=== PATIENT | female | born 1990 | race African-American/Black ===

== ENCOUNTER 2020-07-07 17:36 | Emergency (ER) | payer OTHER ==
--- OUTSIDE RECORDS SUMMARY | 2020-07-07 17:39 | XMS REPORT | Continuity of Care Document ---
:1990 Author Organization [facility] t Address [address] [place] [address] Care Team Providers Name Role Phone Giacomo LANGLEY Attending Clinician Unavailable Mandeep Grant MD Attending Clinician Giacomo LANGLEY Admitting Clinician Unavailable Mandeep Grant MD Admitting Clinician Problems This patient has no known problems. Allergies, Adverse Reactions, Alerts This patient has no known allergies or adverse reactions. Medications This patient has no known medications. Procedures This patient has no known procedures. Encounters Start End Encounter Admission Attending Care Care Encounter Source Date/Time Date/Time Type Type Clinicians Facility Department ID 2018-09-13 2018-09-13 [facility] RudyElsyen [facility] [id number] 22:07:00 23:32:00 Encounter Mandeep Van [id number] [place] [id number] [place] [id number] Results Test Description Test Time Test Comments Results Result [facility] e Comments [id number] SURGICAL 2018-09-30 PATHOLOGY, LEVEL V 15:05:00 -------- [facility] [address] [place] [address] Laboratory Printed: 09/30/18 Leanna MELVIN DAEMPathology Page: 1 Patient: RADHA DOBBS Birthdate: 1990 Age/Sex: 28/F Spec#: [id number]: FAROOQ LANGLEY DO Specimen Date: 09/25/18 Received Date: 09/29/18 Specimen: PLACENTA, THIRD TRIMESTER CLINICAL DIAGNOSIS oligohydramnios, previous PATHOLOGIC DIAGNOSIS Placenta, delivery by section, clinical trimester third. Gross/microscopically determined trimester: Third. Gross features of placental disc: - Weight -- 450 gm. - Thickness -- 2.5 cm. - Shape/morphology -- Discoid. Gross features of umbilical cord: - Insertion -- Eccentrically, 4.5 cm from the nearest margin. - Number of vessels -- Three. - Length -- 41.0 cm. - Diameter -- 1.2 cm. Insertion of membrane: Edge of the placenta. Microscopic findings: - Placental villi -- Infarct. - membranes -- Within normal limits. - Decidua -- Within normal limits. - Maternal vessels -- Within normal limits. - Umbilical cord -- Within normal limits. Pathologist:Avila Carpenter MD Entered by:09/30/18 - 1443 LAB.YGP Patient: RADHA DOBBS Re09/24/18Loc: SISI MR#: [id number] CONTINUED ON NEXT PAGE Dis: 09/28/18Sta: DIS IN -------- [facility] [address] [place] [address] Laboratory Printed: 09/30/[address] [place] [address] Page: 2 -------- Patient: RADHA DOBBS [id number] (Continued) PROCEDURES: 94275 GROSS DESCRIPTION A. PLACENTA, THIRD TRIMESTER PLACENTA AND CORD The specimen is received in 10% formalin, and is labeled with the patient's name and"placenta and cord". The specimen consists of a single discoid shaped placenta with atrimmed weight of 450 gm. The placenta measures 15.0 x 15.0 x 2.5 cm in greatestdimensions. The cord is inserted eccentrically 4.5 cm from the nearest margin. The fetalumbilical cord measures 41.0 cm in length with a 1.2 cm diameter. Cut sectioning of theumbilical cord reveals three vessels and appears grossly unremarkable. The membraneis inserted at the edge of the placenta. It is thin and semi-translucent with no grossabnormalities. The aspects of the placenta have a normal-appearing vascular pattern.It is powers-purple in color with multiple scattered powers-white infarct-like discolored areasranging from 1.8 to 2.0 cm in greatest dimensions and comprise less than 5% of the fetalsurface. Also present is a 0.9 x 0.7 x 0.3 cm cystic nodule toward one end. Arepresentative section is submitted. The maternal aspects have a normal-appearing red-maroon cotyledon. Upon cut sectioning it reveals a red-maroon spongy cut surface with nolesions or masses grossly identified. Random claim representative sections are submitted in threecassettes, A1-3. Section code:A1 - cord and membraneA2 - aspectsA3 - maternal aspects Dictated by: Raquel Trejo Entered by: 09/29/18 - 1512 LAB.YGP MICROSCOPIC DESCRIPTION A microscopic examination was performed to arrive at the diagnostic conclusion reported. Signed (Electronicall y Signed) Avila Carpenter MD 09/30/18 -------- Patient: RADHA DOBBS Re09/24/18Loc: SISI MR#: [id number] END OF REPORT Dis: 09/28/18Sta: DIS IN Hematology 2018-09-26 05:28:00 Test Item Value Reference Range Interpretation Comme nts Hematology (test code = WBCT) 16.3 thou/uL 4.8-10.8 H Hematology (test code = RBCT) 3.62 mill/uL 4.20-5.40 L Hematology (test code = HGBT) 8.8 g/dL 12.0-16.0 L Hematology (test code = HCTT) 26.7 % 36.0-47.0 L Hematology (test code = MCV) 73.8 fL 78.0-98.0 L Hematology (test code = MCH) 24.4 pg 27.0-31.0 L Hematology (test code = MCHC) 33.0 g/dL 32.0-36.0 N Hematology (test code = RDW) 14.8 % 11.5-14.5 H Hematology (test code = PLTT) 305 thou/uL 130-400 N Hematology (test code = MPV) 8.7 fL 7.4-10.4 N Hematology (test code = %NEUT) 84.4 % 42.0-75.0 H Hematology (test code = %LYMPH) 10.7 % 21.0-51.0 L Hematology (test code = %MONO) 4.7 % 0.0-10.0 N Hematology (test code = %EOS) 0.1 % 0.0-10.0 N Hematology (test code = %BASO) 0.1 % 0.0-1.0 N Hematology (test code = NEUT#) 13.7 thou/uL 1.40-6.50 H Hematology (test code = LYMPH#) 1.7 thou/uL 1.20-3.40 N Hematology (test code = MONO#) 0.8 thou/uL 0.11-0.59 H Hematology (test code = EOS#) 0.0 thou/uL 0.0-0.7 N Hematology (test code = BASO#) 0.0 thou/uL 0.0-0.2 N Chemistry - [id number] 20:42:00 Test Item Value Reference Range Interpretation Comments Chemistry - Specials (test Non-Reactive S/CO NonReactive code = THBSAG) Chemistry - [id number] 20:42:00 Test Item Value Reference Range Interpretation Comments Chemistry - Specials (test code Non-Reactive NonReactive = HIVT) Retype Verify-Blood Type [id number] 20:24:00 Test Item Value Reference Range Interpretation Comments Blood Type Rh (test code = BT) A POSITIVE [id number] 19:40:00 Test Item Value Reference Range Interpretation Comments Immunology (test code = SYPHABT) Nonreactive Nonreactive [id number] 19:08:00 Test Item Value Reference Range Interpretation Comments Hematology (test code = WBCT) 9.7 thou/uL 4.8-10.8 N Hematology (test code = RBCT) 3.77 mill/uL 4.20-5.40 L Hematology (test code = HGBT) 9.4 g/dL 12.0-16.0 L Hematology (test code = HCTT) 27.9 % 36.0-47.0 L Hematology (test code = MCV) 74.0 fL 78.0-98.0 L Hematology (test code = MCH) 24.8 pg 27.0-31.0 L Hematology (test code = MCHC) 33.5 g/dL 32.0-36.0 N Hematology (test code = RDW) 15.0 % 11.5-14.5 H Hematology (test code = PLTT) 316 thou/uL 130-400 N Hematology (test code = MPV) 9.3 fL 7.4-10.4 N US Biophysical ProfileSt [facility] Pt Name: RADHA DOBBS [employer] Phys: [place] [address] : 1990 Age: 28 SEX:F [phone] Exam Date: 09/25/18 Status: ADM IN Acct: [id number] Loc: Giacomo Deras Pt Unit #: [id number] Report #: [id number] CC: FAROOQ LANGLEY DO ULTRASOUND REPORT Order # Category/Exam [id number] ULT/US Biophysical Profile ([id number]): . Results Exam: NONSTRESS BIOPHYSICAL PROFILE: HISTORY: 35-weeks patient. Oligohydramnios. Comparison: None TECHNIQUE: Nonstress biophysical profile was performed. FINDINGS: Single intrauterine gestation with vertex presentation. Anterior placenta. Cervical length is 3.6 cm heart tones with a rate of 123 bpm Amniotic fluid index is 3.5 cm Nonstress biophysical profile: tone: 2 breathin movements: 2 Amniotic fluid: 0 Total score 4 out of 8: IMPRESSION: 1. Single intrauterine gestation with heart tones. 2. Nonstress biophysical profile score is 4 out of 8. Results were given to Giacomo Martínez by the regulator pin inserter on 09/25/2018 at the time of the examination. Code CR Transcribed Date/Time: 09/25/2018 10:10 AM Reported By: Ok Gamboa ElectronicallySigned: 09/25/2018 10:35 AM Reported By: Ok Gamboa MD Electronically Signed Date/Time: 09/25/18 1035 Technologist: DIOGENES Dictated Date/Time: 09/25/18 0933 Transcribed Date/Time:
--- NOTE | 2020-07-07 18:57 | RAD REPORT ---
EXAM DESCRIPTION: RAD - Chest Single View - 07/07/2020 6:48 pm CLINICAL HISTORY: fever, cough, chills, body or right back pain COMPARISON: Portable February 2013 TECHNIQUE: AP portable chest image was obtained 07/07/2020 6:48 pm . FINDINGS: Lungs are clear. Heart and vasculature are normal. No measurable pleural effusion and no p neumothorax. No acute bony abnormality seen. No acute aortic findings suspected. IMPRESSION: No acute cardiopulmonary process.
[2020-07-07 19:15] LABS: Urine Blood 1+ (Negative); Urine Glucose Negative (Negative); Urine Protein 1+ (Negative)
[2020-07-07 19:45] LABS: Urine Bacteria 20-50 /HPF (<20); Urine Mucus 1+ /HPF (NONE SEEN)
[2020-07-07 20:01] LABS: SARS-COV-2 RT PCR NEGATIVE (NEGATIVE)
[2020-07-07] MEDS ORDERED: ACETAMINOPHEN 500 MG TAB ONE ×2 (20:25→20:28)
[2020-07-07] MEDS ORDERED: CEFTRIAXONE 1000 MG/VIAL ONE (20:25)
[2020-07-07] MEDS ORDERED: WATER FOR INJ,STERILE 10 ML ONE (20:25)
--- NOTE | 2020-07-07 20:27 | ER ---
Nurse's Notes [facility] Name: Jazlyn Frazier Age: 30 yrs Sex: Female : 1990 Arrival Date: 07/07/2020 Time: 17:41 Bed 5 Private MD: Diagnosis: Urinary tract infection, site not specified;Cough;Fever, unspecified Presentation: 07/07 18:18 Chief complaint: Patient states: Cough x 5 - 6 days, chills, bodyaches, R lower back ca1 pain today. Coronavirus screen: Client denies travel out of the [place] in the last 14 days. chills, cough unrelated to allergies, Client presents with at least one sign or symptom that may indicate coronavirus-19. Standard/surgical mask placed on the client. Provider contacted for isolation considerations. Ebola Screen: Patient negative for fever greater than or equal to 101.5 degrees Fahrenheit, and additional compatible Ebola Virus Disease symptoms Patient denies exposure to infectious person. Patient denies travel to an Ebola-affected area in the 21 days before illness onset. No symptoms or risks identified at this time. Initial Sepsis Screen: Does the patient meet any 2 criteria? No. Patient's initial sepsis screen is negative. Does the patient have a suspected source of infection? No. Patient's initial sepsis screen is negative. Risk Assessment: Do you want to hurt yourself or someone else? Patient reports no desire to harm self or others. Onset of symptoms was July 07, 2020. 18:18 Method Of Arrival: Ambulatory ca1 18:18 Acuity: ALEKSANDAR 4 ca1 SPEECH THERAPIST TECHNICIAN: 18:20 [facility] 06/29/2020 ca1 Historical: - Allergies: 18:20 No Known Allergies; ca1 - Home Meds: 18:20 None [Active]; ca1 - PMHx: 18:20 None; ca1 - PSHx: 18:20 ; ca1 - Immunization history:: Client reports having NOT received the Covid vaccine. Flu vaccine is not up to date. - Social history:: Smoking status: Patient denies any tobacco usage or history of. Screenin:00 Abuse screen: Denies threats or abuse. Nutritional screening: No deficits noted. jb4 Tuberculosis screening: No symptoms or risk factors identified. Fall Risk None identified. Assessment: 19:00 General: Appears in no apparent distress. uncomfortable, Behavior is calm, cooperative, jb4 appropriate for age. Pain: Complains of pain in back Pain does not radiate. Pain currently is 10 out of 10 on a pain scale. Neuro: Level of Consciousness is awake, alert, obeys commands, Oriented to person, place, time, situation. Cardiovascular: Patient's skin is warm and dry. Respiratory: Airway is patent Respiratory effort is even, unlabored, Respiratory pattern is regular, symmetrical. GI: No signs and/or symptoms were reported involving the gastrointestinal system. : No signs and/or symptoms were reported regarding the genitourinary system. EENT: No signs and/or symptoms were reported regarding the EENT system. Derm: Skin is intact, Skin is pink, warm \T\ dry. Musculoskeletal: Circulation, motion, and sensation intact. Range of motion: intact in all extremities. 20:01 Reassessment: Patient appears in no apparent distress at this time. Patient and/or jb4 family updated on plan of care and expected duration. Pain level reassessed. Patient is alert, oriented x 3, equal unlabored respirations, skin warm/dry/pink. Vital Signs: 18:18 BP 131 / 84; Pulse 91; Resp 16 S; Temp 97.8(TE); Pulse Ox 99% on R/A; Weight 86.18 kg ca1 (R); Height 5 ft. 0 in. (152.40 cm) (R); Pain 10/10; 20:00 BP 119 / 77; Pulse 95; Resp 18; Temp 101.0(TE); Pulse Ox 100% on R/A; jb4 20:35 Temp 98.2(TE); jb4 18:18 Body Mass Index 37.11 (86.18 kg, 152.40 cm) ca1 ED Course: 17:41 Patient arrived in ED. mr 18:09 Delvin Landrum PA is PHCP. jmm 18:09 Derw Garza MD is Attending Physician. jmm 18:19 Triage completed. ca1 18:20 Arm band placed on right wrist. ca1 18:44 Hal Salazar, JENNIFER is Primary Nurse. em 18:48 Chest Single View XRAY In Process Unspecified. EDMS 19:00 Patient has correct armband on for positive identification. Bed in low position. Call jb4 light in reach. Side rails up X 1. Pulse ox on. NIBP on. 20:36 No provider procedures requiring assistance completed. Patient did not have IV access jb4 during this emergency room visit. Administered Medications: 20:08 Drug: Tylenol 1000 mg Route: PO; jb4 20:37 Follow up: Response: No adverse reaction; Marked relief of symptoms jb4 20:14 Drug: Rocephin (cefTRIAXone) 1 grams Route: IM; Site: left gluteus; jb4 20:37 Follow up: Response: No adverse reaction jb4 Outcome: 20:26 Discharge ordered by . soco 20:36 Discharged to home ambulatory. jb4 20:36 Condition: stable 20:36 Discharge instructions given to patient, Instructed on discharge instructions, follow up and referral plans. medication usage, Demonstrated understanding of instructions, follow-up care, medications, Prescriptions given X 2. 20:37 Patient left the ED. jb4 Addendum: 07/11/2020 09:20 Addendum: Culture Results: Positive urine culture. No further action required. Bacteria s v sensitive to prescribed antibiotic. Signatures: Dispatcher [employer] Elise Ren, RN RN Delvin Gonzalez PA PA jmm Rivera, Mary mr Munoz, Edgar, RN RN em Bryson, James, RN RN jbAmara Foote RN RN ca1
--- NOTE | 2020-07-07 20:27 | EDPHYS ---
Physician Documentation [facility] Name: Jazlyn Frazier Age: 30 yrs Sex: Female : 1990 Arrival Date: 07/07/2020 Time: 17:41 Bed 5 Private MD: HARRISON Physician Drew Garza HPI: 07/07 19:58 This 30 yrs old Black Female presents to ER via Ambulatory with complaints of Back jmm Pain, Cough. 19:58 The patient presents with pain that is acute. The symptoms are located in the low back. jmm Onset: The symptoms/episode began/occurred gradually, 5 day(s) ago. The pain does not radiate. Associated signs and symptoms: Pertinent positives: dysuria. Modifying factors: The patient symptoms are alleviated by nothing, the patient symptoms are aggravated by nothing. The patient has not experienced similar symptoms in the past. Patient also complains of cough, body aches. . GRILL COOK: 18:20 LMP 06/29/2020 ca1 Historical: - Allergies: 18:20 No Known Allergies; ca1 - Home Meds: 18:20 None [Active]; ca1 - PMHx: 18:20 None; ca1 - PSHx: 18:20 ; ca1 - Immunization history:: Client reports having NOT received the Covid vaccine. Flu vaccine is not up to date. - Social history:: Smoking status: Patient denies any tobacco usage or history of. ROS: 19:58 Constitutional: Positive for body aches, chills. jmm 19:58 Respiratory: Positive for cough. 19:58 Back: Positive for pain with movement. 19:58 All other systems are negative. Exam: 19:58 Constitutional: This is a well developed, well nourished patient who is awake, alert, jmm and in no acute distress. Head/Face: atraumatic. Eyes: EOMI, no conjunctival erythema appreciated ENT: Moist Mucus Membranes Neck: Trachea midline, Supple Chest/axilla: Normal chest wall appearance and motion. Cardiovascular: Regular rate and rhythm. No edema appreciated Respiratory: Normal respirations, no respiratory distress appreciated Abdomen/GI: Non distended, soft Back: Normal ROM Skin: General appearance color normal MS/ Extremity: Moves all extremities, no obvious deformities appreciated, no edema noted to the lower extremities Neuro: Awake and alert, normal gait Psych: Behavior is normal, Mood is normal, Patient is cooperative and pleasant Vital Signs: 18:18 BP 131 / 84; Pulse 91; Resp 16 S; Temp 97.8(TE); Pulse Ox 99% on R/A; Weight 86.18 kg ca1 (R); Height 5 ft. 0 in. (152.40 cm) (R); Pain 10/10; 20:00 BP 119 / 77; Pulse 95; Resp 18; Temp 101.0(TE); Pulse Ox 100% on R/A; jb4 20:35 Temp 98.2(TE); jb4 18:18 Body Mass Index 37.11 (86.18 kg, 152.40 cm) ca1 MDM: 18:26 Patient medically screened. [facility] 20:19 Data reviewed: vital signs, nurses notes. Counseling: I had a detailed discussion with soco the patient and/or guardian regarding: the historical points, exam findings, and any diagnostic results supporting the discharge/admit diagnosis, lab results, radiology results, the need for outpatient follow up, to return to the emergency department if symptoms worsen or persist or if there are any questions or concerns that arise at home. ED course: Differential would include acute bronchitis, viral syndrome, uti, pyelonephritis. Patient is alert and non toxic in appearance. Will treat urine with abx. Patient given strict return precautions. patient understood and agrees with the plan of care. . 07/07 18:34 Order name: Flu [facility] 07/07 18:34 Order name: COVID-19 : Document "Date of Symptom Onset" if Symptomatic. [facility] 07/07 19:15 Order name: Urine Dipstick-Ancillary; Complete Time: 19:32 [facility] 07/07 19:16 Order name: Urine Microscopic Only; Complete Time: 19:58 [facility] 07/07 18:34 Order name: Chest Single View XRAY; Complete Time: 19:04 [facility] 07/07 19:04 Order name: Urine Dipstick-Ancillary (obtain specimen); Complete Time: 19:16 [facility] 07/07 19:17 Order name: Urine --Ancillary (enter results); Complete Time: 19:36 [facility] 07/07 19:46 Order name: Urine Culture [facility] 07/07 20:01 Order name: COVID-19/FLU A+B; Complete Time: 20:03 EDNC Administered Medications: 20:08 Drug: Tylenol 1000 mg Route: PO; jb4 20:37 Follow up: Response: No adverse reaction; Marked relief of symptoms jb4 20:14 Drug: Rocephin (cefTRIAXone) 1 grams Route: IM; Site: left gluteus; jb4 20:37 Follow up: Response: No adverse reaction jb4 Disposition: 07/08 06:43 Co-signature as Attending Physician, Drew Garza MD I agree with the assessment and kdr plan of care. Disposition: 07/07/20 20:26 Discharged to Home. Impression: Urinary tract infection, site not specified, Cough, Fever, unspecified. - Condition is Stable. - Discharge Instructions: Urinary Tract Infection, Adult. - Prescriptions for cefpodoxime 200 mg Oral Tablet - take 1 tablet by ORAL route every 12 hours for 10 days with food; 20 tablet. Zofran ODT 4 mg Oral tablet,disintegrating - place 1 tablet by TRANSLINGUAL route every 4-6 hours; 20 tablet. - Medication Reconciliation Form, Thank You Letter, Antibiotic Education, Prescription Opioid Use form. - Follow up: Private Physician; When: 2 - 3 days; Reason: Recheck today's complaints, Continuance of care, Re-evaluation by your physician. Signatures: Dispatcher [employer] [facility] Drew Garza MD MD kdr Mickail, Joel, PA PA [facility] Babak Haile, RN RN jb4 Amara Murray RN RN ca1 Corrections: (The following items were deleted from the chart) 07/07 19:17 18:34 Influenza Screen (A ordered. [facility] 19:17 18:34 CORONAVIRUS ordered. [facility] 20:37 20:26 07/07/2020 20:26 Discharged to Home. Impression: Urinary tract infection, site jb4 not specified; Cough; Fever, unspecified. Condition is Stable. Forms are Medication Reconciliation Form, Thank You Letter, Antibiotic Education, Prescription Opioid Use. Follow up: Private Physician; When: 2 - 3 days; Reason: Recheck today's complaints, Continuance of care, Re-evaluation by your physician. [facility]
[2020-07-07 20:45] VITALS: BP 119/77; O2SAT 100
[2020-07-07 20:46] VITALS: TEMP 98.2
== END 2020-07-07 20:37 | disposition home or self-care (01) ==
LOC: ER 17:36
DX: N39.0 Urinary tract infection, site not specified (principal); R05 Cough; Z20.822 Contact with and (suspected) exposure to COVID-19
CPT/HCPCS: 87088; 87086; 81025; 87077; 87186; 0240U; 71045; 96372; 99284; 81003; 81015

== ENCOUNTER 2021-03-30 07:41 | Emergency (ER) | payer OTHER ==
--- OUTSIDE RECORDS SUMMARY | 2021-03-30 07:43 | XMS REPORT | Continuity of Care Document ---
:1990 Author Organization [facility] t Address [address] [place] [address] Care Team Providers Name Role Phone Suleiman DENISE Primary Care Physician Unavailable Naya URBINA Attending Clinician Unavailable Giacomo LANGLEY Attending Clinician Unavailable Mandeep Grant MD Attending Clinician Giacomo LANGLEY Admitting Clinician Unavailable Mandeep Grant MD Admitting Clinician Problems This patient has no known problems. Allergies, Adverse Reactions, Alerts Allergy Allergy Status Severity Reaction(s) Onset Inactive Treating Comm ents Source Name Type Date Date Clinician NO KNOWN Drug Active [facility] ALLERGIE Class [facility] Medications This patient has no known medications. Procedures This patient has no known procedures. Encounters Start End Encounter Admission Attending Care Care Encounter Source Date/Time Date/Time Type Type Clinicians Facility Department ID 2019-12-01 2019-12-01 Outpatient Suleiman [facility]RBINA [facility] [id number] 7Q-[id number] [facility] 14:45:00 14:45:00 [facility] [id number] [facility] 2018-09-13 2018-09-13 [facility] Grazyna Grant [facility] [id number] 22:07:00 23:32:00 Encounter Mandeep Lutz [id number] [place] [id number] [place] [id number] Results Test Description Test Time Test Comments Results Result [facility] e Comments [id number] SURGICAL 2018-09-30 PATHOLOGY, LEVEL V 15:05:[address] [address] Laboratory Printed: 09/30/18 1501 BK DAEMPathology Page: 1 Patient: RADHA DOBBS Birthdate: 1990 Age/Sex: 28/F Spec#: [id number]: FAROOQ LANGLEY DO Specimen Date: [...] LAB.YGP Patient: RADHA DOBBS Re09/24/18Loc: SISI MR#: [id number] CONTINUED ON NEXT PAGE Dis: 09/28/18Sta: DIS IN -------- [address] [address] Laboratory Printed: 09/30/18 [facility] Page: 2 -------- Patient: RADHA DOBBS [id number] (Continued) PROCEDURES: 79641 GROSS DESCRIPTION A. PLACENTA, THIRD TRIMESTER PLACENTA [...] with nolesions or masses grossly identified. Random lead customer service representative sections are submitted in threecassettes, A1-3. Section code:A1 - cord and membraneA2 - aspectsA3 - maternal aspects Dictated by: Raquel Trejo Entered by: 09/29/18 1512 LAB.YGP MICROSCOPIC DESCRIPTION A microscopic examination was performed to arrive at the diagnostic conclusion reported. Signed (Electronicall y Signed) Avila Carpenter MD 09/30/18 -------- Patient: RADHA DOBBS Re09/24/18Loc: SISI MR#: [id number] END OF REPORT Dis: 09/28/18Sta: DIS IN [...] BASO#) 0.0 thou/uL 0.0-0.2 N Chemistry - [id number] 20:42:00 Test Item Value Reference Range Interpretation Comments Chemistry - Specials (test Non-Reactive S/CO NonReactive code = THBSAG) Chemistry - [id number] 20:42:00 Test Item Value Reference Range Interpretation Comments Chemistry - Specials (test code Non-Reactive NonReactive = HIVT) Retype Verify-Blood Type [id number] 20:24:00 Test Item Value Reference Range Interpretation Comments Blood Type Rh (test code = BT) A POSITIVE [id number] 19:40:00 Test Item Value Reference Range Interpretation Comments Immunology (test code = SYPHABT) Nonreactive Nonreactive [id number] 19:08:00 Test Item Value Reference Range Interpretation [...] 9.3 fL 7.4-10.4 N [facility] Name[facility] RADHA [facility]BBS [employer] Phys: [place] [address] : 1990 Age: 28 SEX:F [phone] Exam Date: 09/25/18 Status: ADM IN Acct: [id number] Loc: L D Pt Unit #: [id number] Report #: [id number] CC: FAROOQ LANGLEY DO ULTRASOUND REPORT Order # Category/Exam [id number] ULT/US Biophysical Profile ([id number]): . Results Exam: NONSTRESS BIOPHYSICAL PROFILE: HISTORY: [...] were given to Giacomo Martínez by the brazer furnace on 09/25/2018 at the time of the examination. Code CR Transcribed Date/Time: 09/25/2018 10:10 AM Reported By: Ok Gamboa ElectronicallySigned: 09/25/2018 10:35 AM Reported By: Ok Gamboa MD Electronically Signed Date/Time: 09/25/18 1035 Technologist: DIOGENES Dictated Date/Time: 09/25/18 0933 Transcribed Date/Time:
[2021-03-30 08:19] LABS: Urine Blood Negative (Negative); Urine Glucose Negative (Negative); Urine Protein Negative (Negative); Urine Specific Gravity 1.025 (1.005-1.030)
[2021-03-30 09:08] LABS: Urine Specific Gravity/Preg 1.025 (1.005-1.030)
--- NOTE | 2021-03-30 09:10 | EDPHYS ---
Physician Documentation [facility] Name: Jazlyn Frazier Age: 31 yrs Sex: Female : 1990 Arrival Date: 03/30/2021 Time: 07:43 Bed 19 Private MD: ED Physician Drew Garza HPI: 03/30 08:06 This 31 yrs old Black Female presents to ER via Ambulatory with complaints of Back kdr Pain, Pelvic Pain. 08:06 The patient presents with pain that is acute, with no known mechanism of injury, States kdr that she carries her young children quite a bit but otherwise has had no obvious injury. The symptoms are located in the low back, Her discomfort is more paraspinal and not spinal. Onset: The symptoms/episode began/occurred gradually, 2 day(s) ago. The pain does not radiate. Associated signs and symptoms: Pertinent positives: dysuria, Feels a pressure feeling when urinating. The problem was sustained from unknown cause. Modifying factors: The patient symptoms are alleviated by remaining still, the patient symptoms are aggravated by any movement. Severity of symptoms: At their worst the symptoms were mild, in the emergency department the symptoms are unchanged. The patient has not experienced similar symptoms in the past. The patient has not recently seen a physician. 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 - Social history:: Smoking status: Patient denies any tobacco usage or history of. ROS: 08:06 Constitutional: Negative for fever, chills, and weight loss, Eyes: Negative for injury, kdr pain, redness, and discharge, ENT: Negative for injury, pain, and discharge, Neck: Negative for injury, pain, and swelling, Cardiovascular: Negative for chest pain, palpitations, and edema, Respiratory: Negative for shortness of breath, cough, wheezing, and pleuritic chest pain, Abdomen/GI: Negative for abdominal pain, nausea, vomiting, diarrhea, and constipation, MS/Extremity: Negative for injury and deformity, Skin: Negative for injury, rash, and discoloration, Neuro: Negative for headache, weakness, numbness, tingling, and seizure activity. Psych: Negative for depression, anxiety, suicide ideation, homicidal ideation, and hallucinations, Allergy/Immunology: Negative for hives, rash, and allergies, Endocrine: Negative for neck swelling, polydipsia, polyuria, polyphagia, and marked weight changes, Hematologic/Lymphatic: Negative for swollen nodes, abnormal bleeding, and unusual bruising. 08:06 Back: Positive for pain with movement, of the left low back, left mid back, right mid back and right low back, Negative for decreased range of motion. Exam: 08:06 Constitutional: This is a well developed, well nourished patient who is awake, alert, kdr and in no acute distress. Head/Face: Normocephalic, atraumatic. Eyes: Pupils equal round and reactive to light, extra-ocular motions intact. Lids and lashes normal. Conjunctiva and sclera are non-icteric and not injected. Cornea within normal limits. Periorbital areas with no swelling, redness, or edema. Neck: Trachea midline, no thyromegaly or masses palpated, and no cervical lymphadenopathy. Supple, full range of motion without nuchal rigidity, or vertebral point tenderness. No Meningismus. Chest/axilla: Normal chest wall appearance and motion. Nontender with no deformity. No lesions are appreciated. Cardiovascular: Regular rate and rhythm with a normal S1 and S2. No gallops, murmurs, or rubs. Normal PMI, no JVD. No pulse deficits. Respiratory: Lungs have equal breath sounds bilaterally, clear to auscultation and percussion. No rales, rhonchi or wheezes noted. No increased work of breathing, no retractions or nasal flaring. Abdomen/GI: Soft, non-tender, with normal bowel sounds. No distension or tympany. No guarding or rebound. No evidence of tenderness throughout. Skin: Warm, dry with normal turgor. Normal color with no rashes, no lesions, and no evidence of cellulitis. MS/ Extremity: Pulses equal, no cyanosis. Neurovascular intact. Full, normal range of motion. Neuro: Awake and alert, GCS 15, oriented to person, place, time, and situation. Cranial nerves II-XII grossly intact. Motor strength 5/5 in all extremities. Sensory grossly intact. Cerebellar exam normal. Normal gait. Psych: Awake, alert, with orientation to person, place and time. Behavior, mood, and affect are within normal limits. 08:06 Back: pain, that is mild, of the left low back, left mid back, right mid back and right low back, ROM is normal, normal spinal alignment noted. Vital Signs: 07:50 Resp 15; Temp 98.4(TE); Weight 89.81 kg; Height 5 ft. 0 in. (152.40 cm); Pain 7/10; ss 08:16 BP 129 / 107; Pulse 76; Resp 15; Pulse Ox 99% ; Pain 7/10; eo2 09:00 BP 125 / 78; Pulse 81; Resp 15; Pulse Ox 99% ; eo2 10:25 BP 118 / 85; Pulse 89; Resp 17; Pulse Ox 99% ; Pain 5/10; eo2 07:50 Body Mass Index 38.67 (89.81 kg, 152.40 cm) ss MDM: 08:06 Data reviewed: vital signs, nurses notes, lab test result(s). Counseling: I had a kdr detailed discussion with the patient and/or guardian regarding: the historical points, exam findings, and any diagnostic results supporting the discharge/admit diagnosis, lab results, the need for outpatient follow up. 09:08 ED course: The patient's urine was clearly evidencing infection. Patient is otherwise kdr stable and nontoxic. Will give initial round of medications and discharge. 09:09 Patient medically screened. kdr 03/30 08:19 Order name: Urine Dipstick-Ancillary; Complete Time: 09:05 EDUT 03/30 08:21 Order name: Urine --Ancillary (enter results); Complete Time: 10:02 bd 03/30 08:00 Order name: Urine Dipstick-Ancillary (obtain specimen); Complete Time: 08:20 kdr 03/30 08:00 Order name: Urine Test (obtain specimen); Complete Time: 08:20 kdr Administered Medications: 10:10 Drug: Bactrim (trimethoprim-sulfamethoxazole) 160 mg-800 mg (DS) 160 mg Route: PO; eo2 10:23 Follow up: Response: No adverse reaction eo2 10:12 Drug: Rocephin - (cefTRIAXone) 1 grams {Note: Administered IM, 1g rocephin eo2 reconstituted with lidocaine 1% 3.6ml, 2ml rocephin given R. and L.ventrogluteal.} Route: IVPB; Infused Over: 30 mins; Site: Other; 10:24 Follow up: Response: No adverse reaction eo2 Disposition Summary: 03/30/21 09:09 Discharge Ordered Location: Home kdr Problem: new kdr Symptoms: have improved kdr Condition: Stable kdr Diagnosis - UTI/ Urinary tract infection, site not specified kdr - Acute cystitis kdr Followup: kdr - With: Private Physician - When: 2 - 3 days - Reason: If symptoms return, Further diagnostic work-up, Recheck today's complaints, Continuance of care, Re-evaluation by your physician Discharge Instructions: - Discharge Summary Sheet kdr - Dysuria kdr - Urinary Tract Infection, Adult, [id number] kdr Forms: - Work release form bd - Medication Reconciliation Form kdr - Thank You Letter kdr - Antibiotic Education kdr Prescriptions: - Bactrim DS 800-160 mg Oral Tablet - take 1 tablet by ORAL route every 12 hours for 10 days; 20 tablet; Refills: 0, kdr Product Selection Permitted Signatures: Dispatcher [employer] EDMS Drew Garza MD MD kdr Kathya Camejo RN RN ss Deanne Moran RN RN eo2
--- NOTE | 2021-03-30 09:10 | ER ---
Nurse's Notes [facility] Name: Jazlyn Frazier Age: 31 yrs Sex: Female : 1990 Arrival Date: 03/30/2021 Time: 07:43 Bed 19 Private MD: Diagnosis: UTI/ Urinary tract infection, site not specified;Acute cystitis Presentation: 03/30 07:50 Chief complaint: Patient states: low back pain that began 2 days ago. No known injury. ss Pt reports that pain is worse when repositioning and/or picking up her small children. Coronavirus screen: Client denies travel out of the [place] in the last 14 days. Ebola Screen: Patient denies exposure to infectious person. Patient denies travel to an Ebola-affected area in the 21 days before illness onset. Initial Sepsis Screen: Does the patient meet any 2 criteria? No. Patient's initial sepsis screen is negative. Does the patient have a suspected source of infection? No. Patient's initial sepsis screen is negative. Risk Assessment: Do you want to hurt yourself or someone else? Patient reports no desire to harm self or others. Onset of symptoms was March 28, 2021. 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 - Social history:: Smoking status: Patient denies any tobacco usage or history of. Screenin:16 Abuse screen: Denies threats or abuse. Denies injuries from another. Nutritional eo2 screening: No deficits noted. Tuberculosis screening: No symptoms or risk factors identified. Fall Risk None identified. Assessment: 08:13 General: Appears in no apparent distress. comfortable, Behavior is calm, cooperative. eo2 Pain: Complains of pain in right low back and right mid back and left mid back and left low back. Neuro: Level of Consciousness is awake, alert, obeys commands, Oriented to person, place, time, situation. Cardiovascular: No deficits noted. Reports. Cardiovascular: Denies chest pain, shortness of breath, Capillary refill < 3 seconds. Respiratory: Airway is patent Trachea midline Respiratory effort is even, unlabored, Respiratory pattern is regular, symmetrical, Ventilator assessment: Breath sounds are clear bilaterally. GI: No deficits noted. No signs and/or symptoms were reported involving the gastrointestinal system. : Reports pressure with urination, b/l flank pain Denies burning with urination. Musculoskeletal: Reports pain in right low back and right mid back and left mid back and left low back. Vital Signs: 07:50 Resp 15; Temp 98.4(TE); Weight 89.81 kg; Height 5 ft. 0 in. (152.40 cm); Pain 7/10; ss 08:16 BP 129 / 107; Pulse 76; Resp 15; Pulse Ox 99% ; Pain 7/10; eo2 09:00 BP 125 / 78; Pulse 81; Resp 15; Pulse Ox 99% ; eo2 10:25 BP 118 / 85; Pulse 89; Resp 17; Pulse Ox 99% ; Pain 5/10; eo2 07:50 Body Mass Index 38.67 (89.81 kg, 152.40 cm) ss ED Course: 07:43 Patient arrived in ED. ds1 07:51 Triage completed. ss 07:51 Arm band placed on left wrist. ss 07:52 Deanne Moran, JENNIFER is Primary Nurse. eo2 07:55 Drew Garza MD is Attending Physician. kdr 08:16 Patient has correct armband on for positive identification. Pulse ox on. NIBP on. Door eo2 closed. Warm blanket given. 08:16 No provider procedures requiring assistance completed. eo2 08:20 Urine collected: clean catch specimen, cloudy. mh5 09:06 Urine --Ancillary (enter results) Sent. eo2 10:25 Patient did not have IV access during this emergency room visit. eo2 Administered Medications: 10:10 Drug: Bactrim (trimethoprim-sulfamethoxazole) 160 mg-800 mg (DS) 160 mg Route: PO; eo2 10:23 Follow up: Response: No adverse reaction eo2 10:12 Drug: Rocephin - (cefTRIAXone) 1 grams {Note: Administered IM, 1g rocephin eo2 reconstituted with lidocaine 1% 3.6ml, 2ml rocephin given R. and L.ventrogluteal.} Route: IVPB; Infused Over: 30 mins; Site: Other; 10:24 Follow up: Response: No adverse reaction eo2 Outcome: 09: Discharge ordered by . kdr 10:25 Discharged to home ambulatory. eo2 10:25 Condition: stable 10:25 Discharge instructions given to patient, Instructed on discharge instructions, follow up and referral plans. medication usage, Demonstrated understanding of instructions, follow-up care, medications, Prescriptions given X 1. 10:27 Patient left the ED. eo2 Signatures: Drew Garza MD MD kdr Sanford, Demi ds1 Kathya Camejo RN RN Whitney Felder [facility] Deanne Moran RN RN eo2
[2021-03-30] MEDS ORDERED: CEFTRIAXONE 1000 MG/VIAL ONE (09:49)
[2021-03-30] MEDS ORDERED: LIDOCAINE 1% MPF 2 ML AMPULE ONE (09:51)
[2021-03-30] MEDS ORDERED: SMZ./TMP. 800/160 MG TABLET ONE (10:11)
[2021-03-30 10:32] VITALS: TEMP 98.4
[2021-03-30 10:34] VITALS: O2SAT 99
[2021-03-30 10:36] VITALS: BP 118/85
== END 2021-03-30 10:27 | disposition home or self-care (01) ==
LOC: ER 07:41
DX: N30.00 Acute cystitis without hematuria (principal)
CPT/HCPCS: 81003; 81025; 96374; 99284

== ENCOUNTER 2021-09-10 13:07 | Emergency (ER) | payer OTHER ==
[2021-09-10 14:19] LABS: Urine Blood 1+ (Negative); Urine Glucose Negative (Negative); Urine Protein Trace (Negative); Urine Specific Gravity 1.015 (1.005-1.030)
[2021-09-10 14:58] LABS: Urine Bacteria Loaded /HPF (<20); Urine RBC <5 /HPF (None Seen)
[2021-09-10 15:14] LABS: Urine Specific Gravity/Preg 1.015 (1.005-1.030)
--- NOTE | 2021-09-10 15:14 | EDPHYS ---
Physician Documentation [facility] Name: Jazlyn Frazier Age: 31 yrs Sex: Female : 1990 Arrival Date: 09/10/2021 Time: 13:11 Bed 11 Private MD: ED Physician Elise Kumar HPI: 09/10 15:12 This 31 yrs old Black Female presents to ER via Ambulatory with complaints of Body kb Aches,Chills, Headache. 15:12 The patient has not experienced similar symptoms in the past. The patient has not kb recently seen a physician. 15:12 The patient or guardian reports flu symptoms, myalgias. Onset: The symptoms/episode kb began/occurred 3 day(s) ago. Severity of symptoms: At their worst the symptoms were moderate, in the emergency department the symptoms are unchanged. Modifying factors: The symptoms are alleviated by nothing, the symptoms are aggravated by nothing. Associated signs and symptoms: The patient has no apparent associated signs or symptoms. PT reports chills, headache, fatigue, bodyaches, malaise, and left flank pain that started 3 days ago. States the flank pain started today and last time she had similar pain it was due to a UTI. Historical: - Allergies: 13:37 No Known Allergies; ll1 - PMHx: 13:37 None; ll1 - PSHx: 13:37 section; ll1 - Immunization history:: Client reports having NOT received the Covid vaccine. - Social history:: Smoking status: Patient denies any tobacco usage or history of. ROS: 15:09 Respiratory: Negative for shortness of breath, cough, wheezing, and pleuritic chest kb pain. 15:09 Constitutional: Positive for body aches, chills, fatigue, malaise. 15:09 Back: Positive for flank pain, on the left. 15:09 Neuro: Positive for headache. 15:09 All other systems are negative. Exam: 15:11 Constitutional: This is a well developed, well nourished patient who is awake, alert, kb and in no acute distress. Head/Face: Normocephalic, atraumatic. ENT: Moist Mucous membranes Cardiovascular: Regular rate and rhythm with a normal S1 and S2. No gallops, murmurs, or rubs. No pulse deficits. Respiratory: Respirations even and unlabored. No increased work of breathing. Talking in full sentences Abdomen/GI: Soft, non-tender. No distention Skin: Warm, dry with normal turgor. Normal color. MS/ Extremity: Pulses equal, no cyanosis. Neurovascular intact. Full, normal range of motion. Neuro: Awake and alert, GCS 15, oriented to person, place, time, and situation. Moves all extremities. Normal gait. Psych: Awake, alert, with orientation to person, place and time. Behavior, mood, and affect are within normal limits. 15:11 Back: pain, that is mild, ROM is normal, normal spinal alignment noted, CVA tenderness, that is mild, is noted on the left. Vital Signs: 13:37 BP 132 / 97; Pulse 114; Resp 18; Temp 98.7; Pulse Ox 100% ; Pain 10/10; ll1 MDM: 13:45 Patient medically screened. kb 15:09 Data reviewed: vital signs, nurses notes. Data interpreted: Pulse oximetry: on room air kb is 100 %. Interpretation: normal. Counseling: I had a detailed discussion with the patient and/or guardian regarding: the historical points, exam findings, and any diagnostic results supporting the discharge/admit diagnosis, lab results, the need for outpatient follow up, a family practitioner, to return to the emergency department if symptoms worsen or persist or if there are any questions or concerns that arise at home. 09/10 13:32 Order name: Flu; Complete Time: 14:43 kb 09/10 13:32 Order name: COVID-19 SARS RT PCR (Document "Date of Onset" if Symptomatic); Complete kb Time: 15:09/10 14:19 Order name: Urine Microscopic Only; Complete Time: 15:09 kb 09/10 14:19 Order name: Urine Dipstick-Ancillary; Complete Time: 14:19 EDOH 09/10 14:20 Order name: Urine --Ancillary (enter results); Complete Time: 15:15 ss 09/10 15:02 Order name: Urine Culture EDOH 09/10 14:19 Order name: Urine Dipstick-Ancillary (obtain specimen); Complete Time: 14:19 kb 09/10 14:19 Order name: Urine Test (obtain specimen); Complete Time: 14:19 kb Administered Medications: 15:23 Drug: Augmentin (Amoxicillin-Clavulanate) 875 mg Route: PO; 15:23 Follow up: Response: Medication administered at discharge. Disposition Summary: 09/10/21 15:14 Discharge Ordered Location: Home kb Condition: Stable kb Diagnosis - UTI/ Urinary tract infection, site not specified kb Followup: kb - With: Emergency Department - When: As needed - Reason: Worsening of condition Followup: kb - With: Private Physician - When: 2 - 3 days - Reason: Recheck today's complaints, Continuance of care, Re-evaluation by your physician Discharge Instructions: - Discharge Summary Sheet kb - Urinary Tract Infection, Adult, [id number] kb Forms: - Medication Reconciliation Form kb - Thank You Letter kb - Antibiotic Education kb - Prescription Opioid Use kb - Work release form Prescriptions: - Augmentin 875-125 mg Oral Tablet - take 1 tablet by ORAL route every 12 hours for 10 days; 20 tablet; Refills: 0, kb Product Selection Permitted Signatures: Dispatcher [employer] Julieta Ch, MATI-Brodie THORNE-Kathya Richey, JENNIFER RN Jakob Chavarria RN RN ll1
--- NOTE | 2021-09-10 15:14 | ER ---
Nurse's Notes [facility] Name: Jazlyn Frazier Age: 31 yrs Sex: Female : 1990 Arrival Date: 09/10/2021 Time: 13:11 Bed 11 Private MD: Diagnosis: UTI/ Urinary tract infection, site not specified Presentation: 09/10 13:37 Chief complaint: Patient states: RICH, chills, body aches for 3 days. Think she has the ll1 flu. + nausea. Coronavirus screen: Vaccine status: Patient reports being unvaccinated. Client denies travel out of the [place] in the last 14 days. chills, fatigue, headache, muscle pain, nausea, Client presents with at least one sign or symptom that may indicate coronavirus-19. Standard/surgical mask placed on the client. Ebola Screen: Patient denies travel to an Ebola-affected area in the 21 days before illness onset. Initial Sepsis Screen: Does the patient meet any 2 criteria? HR > 90 bpm. No. Patient's initial sepsis screen is negative. Does the patient have a suspected source of infection? Yes: Productive cough/pneumonia. Risk Assessment: Do you want to hurt yourself or someone else? Patient reports no desire to harm self or others. Onset of symptoms was September 08, 2021. 13:37 Method Of Arrival: Ambulatory [facility] 13:37 Acuity: ALEKSANDAR 4 ll1 Triage Assessment: 13:39 Headache History: Denies prior headaches. General: Appears uncomfortable, ill, Behavior ll1 is cooperative, appropriate for age. Pain: Complains of pain in head Pain currently is 10 out of 10 on a pain scale. Pain began 2-3 days ago. EENT: Reports nasal congestion. Neuro: Reports headache. Cardiovascular: No deficits noted. Respiratory:. GI: Reports nausea. Musculoskeletal: Circulation, motion, and sensation intact. Capillary refill < 3 seconds, Reports pain in back. Historical: - Allergies: 13:37 No Known Allergies; ll1 - PMHx: 13:37 None; ll1 - PSHx: 13:37 section; ll1 - Immunization history:: Client reports having NOT received the Covid vaccine. - Social history:: Smoking status: Patient denies any tobacco usage or history of. Screenin:23 Abuse screen: Denies threats or abuse. Denies injuries from another. Nutritional ss screening: No deficits noted. Tuberculosis screening: Never had TB. Fall Risk None identified. Assessment: 15:23 General: Appears in no apparent distress. comfortable, Behavior is calm, cooperative. ss Neuro: Level of Consciousness is awake, alert, obeys commands, Oriented to person, place, time, situation. Respiratory: Airway is patent Respiratory effort is even, unlabored. Derm: Skin is intact, is healthy with good turgor, Skin is dry, Skin is pink, warm \\T\\ dry. normal. Musculoskeletal: Range of motion: intact in all extremities. Vital Signs: 13:37 BP 132 / 97; Pulse 114; Resp 18; Temp 98.7; Pulse Ox 100% ; Pain 10/10; ll1 ED Course: 13:11 Patient arrived in ED. rg4 13:11 Julieta Levin FNP-C is [facility]. kb 13:11 Elise Kumar MD is Attending Physician. kb 13:39 Triage completed. ll1 13:40 Arm band placed on. ll1 13:43 Flu Sent. mb7 13:43 COVID-19 SARS RT PCR (Document "Date of Onset" if Symptomatic) Sent. mb7 15:17 Kathya Camejo, JENNIFER is Primary Nurse. ss 15:23 Patient has correct armband on for positive identification. Bed in low position. ss 15:23 No provider procedures requiring assistance completed. Patient did not have IV access ss during this emergency room visit. Administered Medications: 15:23 Drug: Augmentin (Amoxicillin-Clavulanate) 875 mg Route: PO; ss 15:23 Follow up: Response: Medication administered at discharge. ss Medication: 15:23 VIS not applicable for this client. ss Outcome: 15:14 Discharge ordered by MD. kb 15:23 Discharged to home ambulatory, with family. ss 15:23 Condition: good 15:23 Discharge instructions given to patient, family, Instructed on discharge instructions, follow up and referral plans. medication usage, Demonstrated understanding of instructions, follow-up care, medications, Prescriptions given X 1. 15:25 Patient left the ED. ss Signatures: Julieta Levin FNP-C FNP-Ckb Smirch, Shelby, RN RN ss Garcia, Rubi rg4 Jakob Chavarria RN RN [facility] Soo Salcedo mb7 Corrections: (The following items were deleted from the chart) 13:41 13:37 Acuity: ALEKSANDAR 3 ll1 ll1
[2021-09-10] MEDS ORDERED: AMOX/K CLAV 875 MG TAB ONE (15:28)
[2021-09-10 15:43] VITALS: BP 132/97; TEMP 98.7; O2SAT 100
== END 2021-09-10 15:25 | disposition home or self-care (01) ==
LOC: ER 13:07
DX: N39.0 Urinary tract infection, site not specified (principal); R51.9 Headache, unspecified
CPT/HCPCS: 81003; 81015; 81025; 87086; 87088; 87804; 99283; U0003

== ENCOUNTER 2022-02-27 15:09 | Emergency (ER) | payer OTHER ==
--- OUTSIDE RECORDS SUMMARY | 2022-02-27 15:14 | XMS REPORT | Continuity of Care Document ---
:1990 Author Organization [facility] t Address [address] [place] [address] Care Team Providers Name Role Phone Courtney Beckett Primary Care Physician [phone] Tatyana Montes Attending Clinician TATYANA DENISE Attending Clinician Unavailable ERIN TRAN Attending Clinician Unavailable MINNA URBINA Attending Clinician Unavailable Allie Tobias PA-C Attending Clinician CELINA JONES Attending Clinician Unavailable ALLIE TOBIAS Attending Clinician Unavailable Doctor Unassigned, [place] Attending Clinician Unavailable LIZ OVALLES Attending Clinician Unavailable FAROOQ LANGLEY Attending Clinician Unavailable Grazyna Grant MD Attending Clinician FAROOQ LANGLEY Admitting Clinician Unavailable Grazyna Grant MD Admitting Clinician Payers Payer Name Policy Type Policy Number Effective Date Expiration Date Formerly [facility] [id number] 2021 [facility] MEDICAID 00:00:00 Problems Condition Condition Condition Status Onset Resolution Last Treating Co mments Source Name Details Category Date Date Treatment Clinician Date Need for Need for Disease Active Unive rs HPV HPV 09-06 it[place] [facility] Encounter Encounter Disease Active Uni vers for for 09-06 ity of surve[place] Medical implantabl implantabl Br anch e e subdermal subdermal contracept contracept [facility] BMI BMI Disease Active Univers 40.0-44.9, 40.0-44.9, 09-06 it y of adult adult 00:00: [address] Sickle-eryn Sickle-eryn Disease Active 2016-02 U nivers l trait l trait 03-10 ity of 00:00: [address] Inmate in Inmate in Disease Active 2016-02 Uni vers correction correction 03-10 it y of al al 00:00: [place] facility facility Medica l [place] Irregular Irregular Disease Active 2016-02 Uni vers menstrual menstrual 03-10 ity of cycle cycle 00:00: [address] Allergies, Adverse Reactions, Alerts Allergy Allergy Status Severity Reaction(s) Onset Inactive Treating Comm ents Source Name Type Date Date Clinician NO KNOWN Drug Active Univers ALLERGIE Class ity of S [facility] Social History Social Habit Start Date Stop Date Quantity Comments Source Exposure to 2021-08-27 2021-09-[address] [facility]-CoV-2 00:00:00 09:04:00 [facility] (event) [place] Tobacco use and 2021-09-06 2021-09-06 Smokeless tobacco Un iversity of exposure 00:00:00 00:00:00 non-user [facility] Alcohol intake 2021-09-06 2021-09-06 Current University of 00:00:00 00:00:00 non-drinker of [facility] alcohol (finding) Branch Sex Assigned At [birth year] Universit y of 00:00:00 00:00:00 [facility] Smoking Status Start Date Stop Date Source Never smoked tobacco [facility] Medications Ordered Filled Start Stop Current Ordering Indication Dosage Frequency Signature Comments Components Source Medication Medication Date Date Medication? Clinician (SIG) Name Name METRONIDAZO 2022-0 No 500 L TAB 500MG 8-17 00:00: 00 TAKE 1 2021-0 No TABLET BY 8-17 MOUTH EVERY 00:00: 12 HOURS 00 FOR 10 DAYS metroNIDAZO 2021-0 Yes [id number] Take 4 Univers LE 500 mg 7-28 tabs now ity of tablet 00:00: for one [place] dose. Medical Branch metroNIDAZO 0 Yes [id number] Take 4 Univers LE 500 mg 7-28 tabs now ity of tablet 00:00: for one [place] dose. Medical Branch metroNIDAZO 0 Yes [id number] Take 4 Univers LE 500 mg 7-28 tabs now ity of tablet 00:00: for one [place] dose. Medical Branch metroNIDAZO Yes [id number] Take 4 Univers LE 500 mg 7-28 tabs now ity of tablet 00:00: for one [place] dose. Medical Branch etonogestre Yes Nexplanon U nivers L 7-27 68 mg ity of (NEXPLANON) 09:07: subdermal [place] 68 mg 21 implant Medical implant Branch etonogestre Yes Nexplanon U nivers L 7-27 68 mg ity of (NEXPLANON) 09:07: subdermal [place] 68 mg 21 implant Medical implant Branch etonogestre Yes Nexplanon U nivers L 7-27 68 mg ity of (NEXPLANON) 09:07: subdermal [place] 68 mg 21 implant Medical implant Branch etonogestre Yes Nexplanon U nivers L 7-27 68 mg ity of (NEXPLANON) 09:07: subdermal [place] 68 mg 21 implant Medical implant Branch Immunizations Ordered Filled Immunization Date Status Comments [facility]ly [facility] e Immunization Name Name HPV9 2021-09-06 Completed University of 00:00:00 [facility] HPV9 2021-09-06 Completed University of 00:00:00 [facility] HPV9 2021-09-06 Completed University of 00:00:00 [facility] HPV9 2021-09-06 Completed University of 00:00:00 [facility] TDAP 2018-09-18 Completed University of 00:00:00 [facility] TDAP 2018-09-18 Completed University of 00:00:00 [facility] TDAP 2018-09-18 Completed University of 00:00:00 [facility] TDAP 2018-09-18 Completed University of 00:00:00 [facility] Influenza Virus 2016-11-01 Completed Universit y of Vaccine 00:00:00 [facility] Influenza Virus 2016-11-01 Completed Universit y of Vaccine 00:00:00 [facility] Influenza Virus 2016-11-01 Completed Universit y of Vaccine 00:00:00 [facility] Influenza Virus 2016-11-01 Completed Universit y of Vaccine 00:00:00 [facility] Vital Signs Vital Name Observation Time Observation Value Comments Source Heart Rate 2021-09-28 08:25:00 54.00 /min Respiratory Rate 2021-09-28 08:25:00 BP Systolic 2021-09-28 08:25:00 135 mm[Hg] BP Diastolic 2021-09-28 08:25:00 71 mm[Hg] Weight Measured 2021-09-28 08:25:00 203.20 pounds Height Measured 2021-09-28 08:25:00 50.00 inches Body Temperature 2021-09-28 08:25:00 97.30 degrees BP Systolic 2019-12-02 11:04:00 115 mm[Hg] BP Diastolic 2019-12-02 11:04:00 82 mm[Hg] Weight Measured 2019-12-02 11:04:00 206.80 pounds Height Measured 2019-12-02 11:04:00 49.32 inches Body Temperature 2019-12-02 11:04:00 98.70 degrees Heart Rate 2019-12-02 11:04:00 71.00 /min Respiratory Rate 2019-12-02 11:04:00 16.00 /min Procedures Procedure Date / Time Performed Performing Clinician Sour e POCT URINALYSIS W/O 2021-11-07 19:33:00 Tatyana Denise [facility] POCT TEST 2021-11-07 19:32:00 Tatyana Denies [facility] Plan of Care Planned Activity Planned Date Details Comments Source Goal Plan of Care Note [code = 11259-6] Goal Plan of Care Note [code = 72145-4] Goal Plan of Care Note [code = 76051-3] Goal Plan of Care Note [code = 41176-7] Goal Plan of Care Note [code = 00136-6] Goal Plan of Care Note [code = 90986-9] Encounters Start End Encounter Admission Attending Care Care Encounter Source Date/Time Date/Time Type Type Clinicians Facility Department ID 2022-03-09 2022-03-09 Outpatient R [facility] [id number] Univers 13:30:00 13:30:[address] [facility] 2021-11-07 2021-11-07 [facility] [id number] Univers 15:15:00 15:45:00 Visit Tatyana [id number] [id number] Jose as MATERNAL [phone] Med ical & CHILD [address] [place] [address] 2021-11-07 2021-11-07 [facility] [id number] Univers 15:15:00 15:15:00 TATYANA simms [facility] 2021-11-07 2021-11-07 [facility] [id number] Univers 13:15:00 13:15:00 EIRN simms [facility] 2021-10-18 2021-10-18 [facility] [id number] Univers 13:15:00 13:15:00 MINNA [facility] 2021-10-12 2021-10-12 [facility] [id number] Univers 13:00:00 13:00:00 MINNA [facility] 2021-10-09 2021-10-09 Outpatient [facility] [id number] Univers 12:45:00 12:45:00 TATYANA azar o [facility] 2021-09-28 2021-09-28 Outpatient [id number] 00:00:00 00:00:00 Visit [id number] 2021-09-28 2021-09-28 Telephone Jatinder [facility] [id number] Univers 00:00:00 00:00:00 Allie [facility] [id number] it y of [facility] [id number] Jose as MATERNAL [phone] [facility] & CHILD [address] [place] [address] 2021-09-15 2021-09-15 Outpatient R KAREN [facility] [id number] Univers 13:05:00 13:05:00 CELINA malachi [facility] 2021-09-15 2021-09-15 Outpatient R [facility] [id number] Univers 13:05:00 13:05:00 ity [facility] 2021-09-07 2021-09-07 Telephone Jatinder [facility] [id number] Univers 00:00:00 00:00:00 Allie [facility] [id number] it y of [facility] [id number] Jose as MATERNAL [phone] [facility] [address] 2021-09-06 2021-09-06 Outpatient R ALLIE TOBIAS [facility] [id number] Univers 08:30:00 10:09:24 ALLIE TOBIAS malachi [facility] 2021-09-06 2021-09-06 Outpatient R ALLIE TOBIAS [facility] [id number] Univers 08:30:00 10:09:24 ALLIE TOBIAS [facility] 2021-09-06 2021-09-06 Office Jatinder [facility] [id number] Univers 08:30:00 10:09:24 Visit Allie [facility] [id number] it y of REGIONAL [id number] Jose as MATERNAL [phone] [facility] [address] 2021-09-06 2021-09-06 Orders Doctor MILLER 1.2.840.114 [id number] Univers 00:00:00 00:00:00 Only Unassigned, GENET [id number] ity of [place] [facility] [id number] Jose as [id number] [address] 2021-06-21 2021-06-21 [facility] [id number] Univers 09:00:00 09:00:00 LIZ azar [facility] 2021-06-21 2021-06-21 [facility]phone [facility] [id number] Univers 00:00:00 00:00:00 Liz [facility] [id number] ity [facility] [id number] Jose as MATERNAL [phone] [facility] CHILD [address] [place] [address] 2021-06-21 2021-06-21 Letter [facility] 1.2.840.114 [id number] Univers 00:00:00 00:00:00 (Out) Liz [facility] [id number] [facility] [id number] Jose as MATERNAL [phone] [address] 2018-09-13 2018-09-13 [facility] 1.2.840.114 [id number] 22:07:00 23:32:00 Encounter Mandeep Bolivar [id number] [place] 4.2.7.2.686 [place] [id number] Results Test Description Test Time Test Comments Results Result Comments Source POCT URINALYSIS W/O SPECIFIC GRAVITY 2021-11-07 19:33:00 Test Item Value Reference Range Interpretation Comme nts POCT PH U (test code = 3254) 0 mg/dl 5-8 A POCT U LEUK EST (test code = 3263) . Negative - Negative POCT U NIT (test code = 3262) . Negative - Negative POCT U PROT (test code = 3259) . Negative - Negative POCT U GLU (test code = 3256) . Negative - Negative POCT U KETONE (test code = 3258) . Negative - Negative POCT U BLD (test code = 3257) . Negative - Negative Lab Interpretation (test code = 18757-7) [facility]normal [facility]/O SPECIFIC [id number] 19:33:00 Test Item Value Reference Range Interpretation Comments POCT PH U (test code = 3254) 0 mg/dl 5-8 A POCT U LEUK EST (test code = . Negative - Negative 3263) POCT U NIT (test code = 3262) . Negative - Negative POCT U PROT (test code = 3259) . Negative - Negative POCT U GLU (test code = 3256) . Negative - Negative POCT U KETONE (test code = 3258) . Negative - Negative POCT U BLD (test code = 3257) . Negative - Negative Lab Interpretation (test code = Abnormal 04075-7) [facility] [id number] 19:32:00 Test Item Value Reference Range Interpretation Comments POCT PREG (test code = 1605) Negative On board controls acceptable with C Yes Line (test code = 3574) POCT PREG LOT # (test code = 3575) POCT PREG TEST DATE (test code = 3576) [facility] [id number] 19:32:00 Test Item Value Reference Range Interpretation Comments POCT PREG (test code = 1605) Negative On board controls acceptable with C Yes Line (test code = 3574) POCT PREG LOT # (test code = 3575) POCT PREG TEST DATE (test code = 3576) [id number] SURGICAL PATHOLOGY, LEVEL [id number] 15:05:[address] [address] Laboratory Printed: 09/30/18 1505 ELLA DAEMPathology Page: 1 Patient: RADHA DOBBS Birthdate: 1990 Age/Sex: 28/F Spec#: [id number]: FAROOQ LANGLEY DO Specimen Date: 09/25/18 Received Date: 09/29/18 Specimen: PLACENTA, THIRD TRIMESTER CLINICAL DIAGNOSIS oligohydramnios,previous PATHOLOGIC DIAGNOSIS Placenta, delivery by section, clinical [...] Pathologist:Avila Carpenter MD Entered by:09/30/18 - 1443 [facility].YGP Patient: RADHA DOBBS Re09/24/18Loc: [facility] MR#: [id number] CONTINUED ON NEXT PAGE Dis: 09/28/18Sta: DIS IN [address] [address] Laboratory Printed: 09/30/18 6678 [facility] DAEMPathology Page: 2 Patient: RADHA DOBBS [id number] (Continued) -- PROCEDURES: [id number] DESCRIPTION A. PLACENTA, THIRD TRIMESTER PLACENTA AND CORD The specimen is received in 10% formalin, and is labeled with the patient's name and"placenta and cord". The specimen consists of a single discoid shaped placenta with atrimmed weight of 450 gm. The placenta measures 15.0 x 15.0 x 2.5 cmin greatestdimensions. The cord is inserted eccentrically 4.5 [...] 0.3 cm cystic nodule toward one end. Are presentative section is submitted. The maternal aspects have a normal-appearing red-maroon cotyledon. Upon cut sectioning it reveals a red-maroon spongy cut surface with nolesions or masses grossly identified. Random pharmaceutical sales representative sections are submitted in threecassettes, A1-3. Section code:A1 - cordand membraneA2 - aspectsA3 - maternal aspects Dictated by: Raquel Trejo Entered by: 09/29/18 - 1512 LAB.YGP MICROSCOPIC DESCRIPTION A microscopic examination was performed to arrive at the diagnostic conclusion reported. Signed (Electronically Signed) Avila Carpenter MD 09/30/18 -- Patient: RADHA DOBBS Re09/24/18Loc: [facility] MR#: [id number] END OF REPORT Dis: 09/28/18Sta: DIS [id number] 05:28:00 Test Item Value Reference Range Interpretation Comments Hematology (test code = WBCT) 16.3 thou/uL [...] BASO#) 0.0 thou/uL 0.0-0.2 N Chemistry - [id number] 20:42:00 Test Item Value Reference Range Interpretation Comments Chemistry - Specials (test Non-Reactive S/CO NonReactive code = THBSAG) Chemistry - [id number] 20:42:00 Test Item Value Reference Range Interpretation Comments Chemistry - Specials (test code Non-Reactive NonReactive = HIVT) Retype Verify-Blood Type [id number] 20:24:00 Test Item Value Reference Range Interpretation Comments Blood Type Rh (test code = BT) A POSITIVE [id number] 19:40:00 Test Item Value Reference Range Interpretation Comments Immunology (test code = SYPHABT) Nonreactive Nonreactive [id number] 19:08:00 Test Item Value Reference Range Interpretation [...] fL 7.4-10.4 N [facility] Name: RADHA DOBBS Telepathy Phys: BRIAN LANGLEY DO [place] [phone] : 1990 Age: 28 SEX:F [phone] Exam Date: 09/25/18 Status: ADMIN Acct: [id number] Loc: Giacomo Deras Pt Unit #: [id number] Report #: [id number] CC: FAROOQ LANGLEY DO ULTRASOUND REPORT Order # Category/Exam [id number] ULT/US Biophysical Profile ([id number]): . Results Exam: NONSTRESS BIOPHYSICAL PROFILE: HISTORY: 35-weeks patient. Oligohydramnios. Co mparison: None TECHNIQUE: Nonstress biophysical profile was performed. FINDINGS: Single intrauterine gestation with vertex presentation. Anterior placenta. Cervical length is 3.6 cm heart tones with a rate of 123 bpm Amniotic fluid index is 3.5 cm Nonstress biophysical profile: tone:2 breathin movements: 2 Amniotic fluid: 0 Total score 4 out of 8: IMPRESSION: 1. Single intrauterine gestation with heart tones. 2. Nonstress biophysical profile score is 4 out of 8. Results were given to Giacomo Martínez by the furniture cleaner on 09/25/2018 at the time of the examination. Code CR Transcribed Date/Time: 09/25/2018 10:10 AM Reported By: Ok Gamboa ElectronicallySigned: 09/25/2018 10:35 AM Reported By: Ok Gamboa MD Electronically Signed Date/Time: 09/25/18 1035 Technologist: DIOGENES Dictated Date/Time: 09/25/18 0942 Transcribed Date/Time:
[2022-02-27] MEDS ORDERED: FAMOTIDINE 20 MG/2 ML VIAL IV ONE (16:06)
[2022-02-27] MEDS ORDERED: NA CHLORIDE 0.9% 2,000 ML ONE (16:07)
[2022-02-27 16:20] LABS: Urine Blood Negative (Negative); Urine Glucose Negative (Negative); Urine Protein Negative (Negative)
[2022-02-27 16:37] LABS: Urine Bacteria None Seen /HPF (<20); Urine Crystals Unidentified Few /HPF (None Seen); Urine Mucus 2+ /HPF (None Seen); Urine RBC <5 /HPF (None Seen)
[2022-02-27 16:38] LABS: Absolute Lymphocytes (CBC) 2.9 K/uL (0.7-4.9); Hematocrit 37.9 % (36.0-45.0); Lymphocytes % 30.2 % (15.3-44.8); MCV 79.7 fL (80-100); RBC Red Blood Cell Count 4.76 M/uL (3.86-4.86)
[2022-02-27 16:51] LABS: Protime INR 1.15
[2022-02-27 17:14] LABS: Albumin 3.6 g/dL (3.4-5.0); Bilirubin Total 0.5 mg/dL (0.2-1.0); Potassium 3.1 mmol/L (3.5-5.1); Protein, Total 7.8 g/dL (6.4-8.2)
--- NOTE | 2022-02-27 20:14 | RAD REPORT ---
EXAM DESCRIPTION: CTAbdomen Pelvis W Contrast - 02/27/2022 8:02 pm CLINICAL HISTORY: give po contrast, rectal bleeding/abdominal pain COMPARISON: No comparisons TECHNIQUE: CT of the abdomen and pelvis was performed with IV and oral contrast. All CT scans are performed using dose optimization technique as appropriate and may include automated exposure control or mA/KV adjustment according to patient size. FINDINGS: Lower chest: No acute abnormality. Liver: No acute abnormality or suspicious lesions. Biliary: No biliary ductal dilatation. Stomach: No significant focal abnormality. Duodenum: No significant focal abnormality. Pancreas: No significant abnormality. Spleen: No significant abnormality. Adrenal: No suspicious lesions. Kidney/ureter: No hydronephrosis. No renal calculi. Retroperitoneum: No retroperitoneal adenopathy. Vascular: No aneurysm. Bowel: Rectal wall thickening and stranding is present.. Normal appendix. No bowel obstruction. Peritoneum: No ascites or free air. Bladder: Grossly unremarkable. Reproductive: No adnexal masses. Bones: No acute fracture. Other: n/a IMPRESSION: Rectal wall thickening with stranding concerning for proctitis. No bowel obstruction.
--- NOTE | 2022-02-27 20:59 | EDPHYS ---
Physician Documentation [facility] Name: Jazlyn Frazier Age: 31 yrs Sex: Female : 1990 Arrival Date: 02/27/2022 Time: 15:12 Bed 17 Private MD: ED Physician Aston Mott HPI: 02/27 15:55 This 31 yrs old Black Female presents to ER via Ambulatory with complaints of Rectal cp Bleeding. 15:55 The patient presents to the emergency department with bleeding from the rectum/anus, cp that is mild. Onset: The symptoms/episode began/occurred yesterday. Context: the patient after performing cleansing with enema for constipation. Associate signs and symptoms: Pertinent positives: abdominal pain in the . 15:55 Patient reports observing bright red blood when wiping and in toilet after several cp bowel movements since yesterday. 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 - Social history:: Smoking status: Patient denies any tobacco usage or history of. ROS: 16:00 Constitutional: Negative for body aches, chills, fever, poor PO intake. cp 16:00 Abdomen/GI: Positive for abdominal pain, constipation, rectal bleeding, Negative for cp abdominal pain, vomiting, diarrhea. 16:00 Eyes: Negative for injury, pain, redness, and discharge. cp 16:00 ENT: Negative for drainage from ear(s), ear pain, sore throat, difficulty swallowing, difficulty handling secretions. 16:00 Cardiovascular: Negative for chest pain, palpitations. cp 16:00 Respiratory: Negative for cough, shortness of breath, wheezing. 16:00 Back: Negative for pain at rest, pain with movement. 16:00 : Negative for hematuria, pelvic pain, vaginal bleeding. 16:00 Neuro: Negative for altered mental status, dizziness, headache, syncope, weakness. 16:00 All other systems are negative. Exam: 16:05 Constitutional: The patient appears in no acute distress, alert, awake, non-toxic, well cp developed, well nourished. 16:05 Head/Face: Normocephalic, atraumatic. cp 16:05 Eyes: Periorbital structures: appear normal, Conjunctiva: normal, no exudate, no injection, Sclera: no appreciated abnormality, Lids and lashes: appear normal, bilaterally. 16:05 ENT: External ear(s): are unremarkable, Nose: is normal, Mouth: Lips: moist, Oral mucosa: moist, Posterior pharynx: is normal, airway is patent, no erythema, no exudate. 16:05 Chest/axilla: Inspection: normal. 16:05 Cardiovascular: Rate: normal, Rhythm: regular. 16:05 Respiratory: the patient does not display signs of respiratory distress, Respirations: normal, no use of accessory muscles, no retractions, labored breathing, is not present, Breath sounds: are clear throughout, no decreased breath sounds, no stridor, no wheezing. 16:05 Abdomen/GI: Inspection: abdomen appears normal, Bowel sounds: active, all quadrants, Palpation: abdomen is soft and non-tender, in all quadrants, rebound tenderness, is not appreciated, voluntary guarding, is not appreciated, involuntary guarding, is not appreciated. 16:05 Back: pain, is absent, ROM is normal. 16:05 : Rectal exam: is normal, no gross blood is appreciated, no hemorrhoids. 16:05 Skin: no rash present. 16:05 Neuro: Orientation: to person, place \T\ time. Mentation: is normal, Motor: moves all fours, strength is normal, Sensation: is normal. Vital Signs: 15:16 BP 136 / 103; Pulse 75; Resp 16 S; Temp 97.7(TE); Pulse Ox 100% on R/A; Weight 88 kg aa5 (R); Height 4 ft. 11 in. (149.86 cm) (R); 16:27 BP 154 / 104; Pulse 78; Resp 16; Pulse Ox 100% ; bp 17:17 BP 153 / 100; Pulse 68; Resp 16; Pulse Ox 100% ; bp 19:27 BP 141 / 96; Pulse 66; Resp 19; Pulse Ox 97% ; Pain 7/10; jj7 20:35 BP 123 / 87; Pulse 68; Resp 20; Pulse Ox 100% ; jj7 21:30 BP 127 / 94; Pulse 84; Resp 19; Pulse Ox 99% ; Pain 0/10; jj7 22:11 BP 121 / 78; Pulse 81; Resp 20; Pulse Ox 98% ; Pain 0/10; jj7 15:16 Body Mass Index 39.18 (88.00 kg, 149.86 cm) aa5 MDM: 15:46 Patient medically screened. cp 17:00 Differential diagnosis: hemorrhoids, abscess, colitis, proctitis. cp 20:57 Data reviewed: vital signs, nurses notes, lab test result(s), radiologic studies, CT cp scan. 20:57 Consideration of Admission/Observation Escalation of care including cp admission/observation considered. I considered the following discharge prescriptions or medication management in the emergency department Medications were administered in the Emergency Department. See MAR. Test considered but Not performed: Other Details stool cx but patient unable to provide sample. 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 02/27 15:52 Order name: CBC with Diff; Complete Time: 17:39 cp 02/27 17:39 Interpretation: Normal except: MCV 79.7; PLT 483. cp 02/27 15:52 Order name: CMP; Complete Time: 17:39 cp 02/27 17:39 Interpretation: Normal except: K 3.1; CL 108; GLOB 4.2; A/G 0.9. cp 02/27 15:52 Order name: Lipase; Complete Time: 17:39 cp 02/27 15:52 Order name: Urine Microscopic Only; Complete Time: 17:39 cp 02/27 18:17 Interpretation: Reviewed. cp 02/27 15:52 Order name: PT-INR; Complete Time: 17:39 cp 02/27 18:17 Interpretation: Reviewed. cp 02/27 15:52 Order name: Ptt, Activated; Complete Time: 17:39 cp 02/27 15:52 Order name: CT Abd/Pelvis - PO and IV Contrast; Complete Time: 20:29 cp 02/27 16:20 Order name: Urine Dipstick-Ancillary; Complete Time: 17:39 EDMS 02/27 17:40 Interpretation: Normal except: UESTR Trace. cp 02/27 16:24 Order name: Urine --Ancillary (enter results); Complete Time: 17:39 bd 02/27 15:52 Order name: IV Saline Lock; Complete Time: 16:29 cp 02/27 15:52 Order name: Labs collected and sent; Complete Time: 16:29 cp 02/27 15:52 Order name: Urine Dipstick-Ancillary (obtain specimen); Complete Time: 16:21 cp 02/27 15:52 Order name: Urine Test (obtain specimen); Complete Time: 16:21 cp 02/27 20:57 Order name: Misc. Order cp Administered Medications: 16:25 Drug: NS 0.9% 1000 ml Route: IV; Rate: 1 bolus; Site: right forearm; bp 16:25 Drug: Pepcid (famotidine) 20 mg Route: IVP; Site: right forearm; bp 16:25 Drug: NS 0.9% 1000 ml Route: IV; Rate: 1 bolus; Site: right forearm; bp 21:54 Drug: Cipro (ciprofloxacin) 500 mg Route: PO; jj7 21:54 Drug: Potassium Effervescent Tablet 50 mEq Route: PO; jj7 21:55 Drug: Dicyclomine 20 mg Route: IM; Site: right gluteus; jj7 21:55 Drug: metroNIDAZOLE 500 mg Route: PO; jj7 22:00 Drug: SOLU-Medrol (methylPrednisoLONE) 125 mg Route: IVP; Site: right antecubital; jj7 Disposition Summary: 02/27/22 20:58 Discharge Ordered Location: Home cp Problem: new cp Symptoms: have improved cp Condition: Stable cp Diagnosis - Proctitis cp Followup: cp - With: Omer Mcguire MD - When: 2 - 3 days - Reason: Recheck today's complaints Discharge Instructions: - Discharge Summary Sheet cp - Proctitis cp Forms: - Medication Reconciliation Form cp - Thank You Letter cp - Antibiotic Education cp - Prescription Opioid Use cp Prescriptions: - Cipro 500 mg Oral Tablet - take 1 tablet by ORAL route every 12 hours for 10 days; 20 tablet; Refills: 0, cp Product Selection Permitted - Metronidazole 500 mg Oral Tablet - take 1 tablet by ORAL route every 8 hours; 30 tablet; Refills: 0, Product cp Selection Permitted - Zofran 4 mg Oral Tablet - take 1 tablet by ORAL route every 12 hours As needed; 20 tablet; Refills: 0, cp Product Selection Permitted - Anusol-HC 25 mg Rectal Suppository - insert 1 suppository by RECTAL route every 12 hours As needed; 20 suppository; cp Refills: 0, Product Selection Permitted Signatures: Dispatcher [employer] Hilda Perez RN RN aa5 Dario Boucher PA PA cp Peltier, Brian, RN RN Morgan Garvin RN RN jj7 Corrections: (The following items were deleted from the chart) 15:17 15:17 PMHx: Unable to Obtain; stefanie aa5
--- NOTE | 2022-02-27 20:59 | ER ---
Nurse's Notes [facility] Name: Jazlyn Frazier Age: 31 yrs Sex: Female : 1990 Arrival Date: 02/27/2022 Time: 15:12 Bed 17 [facility] MD: Diagnosis: Proctitis Presentation: 02/27 15:16 Chief complaint: Patient states: abd pain, back pain, and rectal bleeding that began aa5 yesterday. Pt denies vomiting. Coronavirus screen: At this time, the client does not indicate any symptoms associated with coronavirus-19. Ebola Screen: Patient denies travel to an Ebola-affected area in the 21 days before illness onset. Initial Sepsis Screen: Does the patient meet any 2 criteria? No. Patient's initial sepsis screen is negative. Does the patient have a suspected source of infection? No. Patient's initial sepsis screen is negative. Risk Assessment: Do you want to hurt yourself or someone else? Patient reports no desire to harm self or others. Onset of symptoms was February 2022. 15:16 Method Of Arrival: Ambulatory aa5 15:16 Acuity: ALEKSANDAR 3 aa5 Triage Assessment: 15:30 General: Appears in no apparent distress. Behavior is cooperative, appropriate for age, bp anxious. Pain: Complains of pain in back and abdomen. EENT: No deficits noted. Neuro: No deficits noted. Cardiovascular: Rhythm is sinus rhythm. Respiratory: No deficits noted. GI: Reports rectal bleeding. : No signs and/or symptoms were reported regarding the genitourinary system. Derm: No deficits noted. Musculoskeletal: No deficits noted. 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 - Social history:: Smoking status: Patient denies any tobacco usage or history of. Screenin:30 [facility] ED Fall Risk Assessment (Adult) History of falling in the last 3 months, bp including since admission No falls in past 3 months (0 pts). Abuse screen: Denies threats or abuse. Denies injuries from another. Nutritional screening: No deficits noted. Tuberculosis screening: No symptoms or risk factors identified. Assessment: 15:30 General: SEE TRIAGE NOTE. bp 16:27 Reassessment: PT DRINKING PO CONTRAST. bp 17:17 Reassessment: PO CONTRAST IN PROCESS. bp 17:40 Reassessment: PO CONTRAST COMPLETE, CT NOTIFIED. bp 19:27 Reassessment: Patient is alert, oriented x 3, equal unlabored respirations, skin jj7 warm/dry/pink. ASSUME CARE OF PT. PT LYING IN BED. NO DISTRESS NOTED. VS STABLE. PT STATES SHE IS STILL HAVING ABD PAIN. WILL INFORM PROVIDER. WARM BLANKETS PROVIDED. CALL ZAMAN IN REACH. Vital Signs: 15:16 BP 136 / 103; Pulse 75; Resp 16 S; Temp 97.7(TE); Pulse Ox 100% on R/A; Weight 88 kg aa5 (R); Height 4 ft. 11 in. (149.86 cm) (R); 16:27 BP 154 / 104; Pulse 78; Resp 16; Pulse Ox 100% ; bp 17:17 BP 153 / 100; Pulse 68; Resp 16; Pulse Ox 100% ; bp 19:27 BP 141 / 96; Pulse 66; Resp 19; Pulse Ox 97% ; Pain 7/10; jj7 20:35 BP 123 / 87; Pulse 68; Resp 20; Pulse Ox 100% ; jj7 21:30 BP 127 / 94; Pulse 84; Resp 19; Pulse Ox 99% ; Pain 0/10; jj7 22:11 BP 121 / 78; Pulse 81; Resp 20; Pulse Ox 98% ; Pain 0/10; jj7 15:16 Body Mass Index 39.18 (88.00 kg, 149.86 cm) aa5 ED Course: 15:12 Patient arrived in ED. rg4 15:16 Arm band placed on. aa5 15:17 Triage completed. aa5 15:28 Riki Lopez, RN is Primary Nurse. bp 15:30 Patient has correct armband on for positive identification. Bed in low position. Call bp light in reach. Side rails up X2. 15:33 Dario Boucher PA is PHCP. cp 15:33 Aston Mott MD is Attending Physician. cp 16:21 Urine collected: clean catch specimen. bc6 16:25 Inserted saline lock: 22 gauge in right forearm, using aseptic technique. Blood bp collected. 19:26 Primary Nurse role handed off by Riki Lopez RN mw2 19:44 Morgan Tobias, JENNIFER is Primary Nurse. jj7 20:04 CT Abd/Pelvis - PO and IV Contrast In Process Unspecified. EDMS 20:58 Omer Mcguire MD is Referral Physician. cp 22:13 No provider procedures requiring assistance completed. IV discontinued, intact, jj7 bleeding controlled, No redness/swelling at site. Pressure dressing applied. Administered Medications: 16:25 Drug: NS 0.9% 1000 ml Route: IV; Rate: 1 bolus; Site: right forearm; bp 16:25 Drug: Pepcid (famotidine) 20 mg Route: IVP; Site: right forearm; bp 16:25 Drug: NS 0.9% 1000 ml Route: IV; Rate: 1 bolus; Site: right forearm; bp 21:54 Drug: Cipro (ciprofloxacin) 500 mg Route: PO; jj7 21:54 Drug: Potassium Effervescent Tablet 50 mEq Route: PO; jj7 21:55 Drug: Dicyclomine 20 mg Route: IM; Site: right gluteus; jj7 21:55 Drug: metroNIDAZOLE 500 mg Route: PO; jj7 22:00 Drug: SOLU-Medrol (methylPrednisoLONE) 125 mg Route: IVP; Site: right antecubital; jj7 Medication: 15:30 VIS not applicable for this client. bp Outcome: 20:58 Discharge ordered by MD. cp 22:13 Discharged to home ambulatory. jj7 22:13 Condition: improved 22:13 Discharge instructions given to patient, Instructed on discharge instructions, follow up and referral plans. medication usage, Demonstrated understanding of instructions, follow-up care, medications, Prescriptions given X 4. 22:15 Patient left the ED. jj7 Signatures: Dispatcher [employer] EDMD Hilda Carrington RN RN aa5 Dario Boucher PA PA cp Juana Bruner rg4 Riki Lopez, JENNIFER RODRIGUEZ bp Amanda Angel mw2 Morgan Tobias RN RN jj7 Risa Oakley 6 Corrections: (The following items were deleted from the chart) 15:17 15:17 PMHx: Unable to Obtain; aa5 aa5
[2022-02-27] MEDS ORDERED: metroNIDAZOLE 500 MG TABLET ONE (21:35)
[2022-02-27] MEDS ORDERED: CIPROFLOXACIN HCL 500 MG TAB ONE (21:35)
[2022-02-27] MEDS ORDERED: DICYCLOMINE HCL 20 MG/2 ML AMP IM ONE (21:36)
[2022-02-27] MEDS ORDERED: POTASSIUM 25 MEQ EFFERV TAB ONE (21:36)
[2022-02-27] MEDS ORDERED: METHYLPREDNISOLONE 125 MG INJ ONE (21:59)
[2022-02-27 22:30] VITALS: TEMP 97.7
[2022-02-27 22:37] VITALS: BP 121/78; O2SAT 98
== END 2022-02-27 22:15 | disposition home or self-care (01) ==
LOC: ER 15:09
DX: K62.89 Other specified diseases of anus and rectum (principal)
CPT/HCPCS: 85025; 36415; 81025; 85610; 85730; 83690; 80053; 74177; Q9967; J0500; J7030; J2930; 81003; 81015

== ENCOUNTER 2024-04-23 16:56 | Emergency (ER) | payer OTHER, SELFPAY ==
--- OUTSIDE RECORDS SUMMARY | 2024-04-23 17:01 | XMS REPORT | Continuity of Care Document ---
Author Name Unknown Address [address] [facility] [address] [place] [address] Organization [facility] [place] Address [address] [facility] [address] [place] [address] Care Team Providers Care Medical Research Assistant Name Role Phone Courtney Beckett Primary Care Physician [phone] Faroo[address] MEREDITH Attending Clinician [phone] FAROOQ FERRIS Attending Clinician Unavailable AMEENA COOL Attending Clinician Yessica Meyer MA Attending Clinician Allie MANRIQUEZ, ATTENDING Attending Clinician Tatyana Forrest Attending Clinician TATYANA DENISE Attending Clinician UnavailERIN Encarnacion Attending Clinician UnavailMINNA Castillo Attending Clinician Allie Gaona PA-C Attending Clinician CELINA JONES Attending Clinician Unavail ALLIE Santana Attending Clinician Unavailable Doctor Unassigned, [place] Attending Clinician LIZ Ragsdale Attending Clinician FAROOQ Black Attending Clinician Allie Grant MD, Grazyna Kaufman Attending Clinician FAROOQ LEONARD Admitting Clinician Allie Grant MD, Grazyna Kaufman Admitting Clinician Payers Payer Name Policy Type Policy Number Effective Date Expirati on Date Source Problems Condition Name Condition Details Condition Category Status Onset Date Resolution Date Last Treatment Date Treating Clinician Comments Source Need for HPV vaccinatio n Need for HPV vaccinatio n Disease Active 09-06 00:00: 00 [facility] BMI 40.0-44.9, adult BMI 40.0-44.9, adult Disease Active 09-06 00:00: 00 [facility] Irregular menstrual cycle Irregular menstrual cycle Disease Active 2016-02 00:00: 00 [facility] Encounter for surveillan ce of implantabl e subdermal contracept [facility] Encounter for surveillan ce of implantabl e subdermal contracept [facility] Disease Resolve d 09-06 00:00: 00 2024-04-10 00:00:00 2024-04-10 15:46:01 [facility] Inmate in correction al facility Inmate in correction al facility Disease Resolve d 2016-02 00:00: 00 2024-04-10 00:00:00 2024-04-10 15:45:58 [facility] Maternal varicella, non-immune Maternal varicella, non-immune Disease Resolve d 2016-02 00:00: 00 2021-09-06 00:00:00 2021-09-06 07:50:35 [facility] Supervisio n of elderly multigravi da, antepartum , second trimester Supervisio n of elderly multigravi da, antepartum , second trimester Disease Resolve d 2016-02 00:00: 00 2021-09-06 00:00:00 2021-09-06 07:50:21 [facility] Previous delivery affecting , antepartum Previous delivery affecting , antepartum Disease Resolve d 2016-02 00:00: 00 2021-09-06 00:00:00 2021-09-06 07:50:25 [facility] Multiparit y Multiparit y Disease Resolve d 2016-02 00:00: 00 2021-09-06 00:00:00 2021-09-06 07:50:28 [facility] Sickle cell trait Sickle cell trait Disease Resolve d 2016-02 00:00: 00 2021-09-06 00:00:00 2021-09-06 07:50:32 [facility] Obesity in Obesity in Disease Resolve d 2016-02 00:00: 00 2021-09-06 00:00:00 2021-09-06 07:50:33 [facility] Obesity (BMI 30-39.9) Obesity (BMI 30-39.9) Disease Resolve d 2015-02 00:00: 00 2017-01-08 00:00:00 2017-01-08 13:11:12 [facility] High-risk High-risk Disease Resolve d 09-08 00:00: 00 2017-01-08 00:00:00 2021-08-27 00:25:42 [facility] Allergies, Adverse Reactions, Alerts Allergy Name Allergy Type Status Severity Reaction(s) Onset Date Inactive Date Treating Clinician Comments Source NO KNOWN ALLERGIE S Drug Class Active [facility] Social History Social Habit Start Date Stop Date Quantity Comments Source Gender identity [facility] of Social function 2024-04-10 00:00:00 2024-04-10 00:00:00 [facility] Alcoholic beverage intake 2024-04-10 00:00:00 2024-04-10 00:00:00 Current non-drinker of alcohol (finding) [facility] Exposure to SARS-CoV-2 (event) 2021-08-27 00:00:00 2021-09-06 09:04:00 Not sure [facility] Tobacco use and exposure 2021-09-06 00:00:00 2021-09-06 00:00:00 Smokeless tobacco non-user [facility] Alcohol intake 2021-09-06 00:00:00 2021-09-06 00:00:00 Current non-drinker of alcohol (finding) [facility] Sex assigned at 1990 00:00:00 1990 00:00:00 [facility] Smoking Status Start Date Stop Date Source Never smoked tobacco [facility] Medications Ordered Medication Name Filled Medication Name Start Date Stop Date Current Medication? Ordering Clinician Indication Dosage Frequency Signature (SIG) Comments Components Source sulfamethox azole-trime thoprim (BACTRIM DS) 800-160 mg per tablet 04-13 00:00: 00 Yes [id number] 1{tbl} Take 1 tablet by mouth in the morning and 1 tablet in the evening. [facility] metroNIDAZO LE 500 mg tablet 04-12 00:00: 00 Yes [id number] 500mg Take 1 tablet by mouth every 12 (twelve) hours. [facility] fluconazole 150 mg tablet 04-12 00:00: 00 04-13 05:59 :00 Yes [id number] 150mg Take 1 tablet by mouth once now for 1 dose. [facility] etonogestre L (NEXPLANON) 68 mg implant 2-28 16:02: 33 04-10 00:00 :00 No Nexplanon 68 mg subdermal implant [facility] METRONIDAZO L TAB 500MG - 00:00: 00 No 500 TAKE 1 TABLET BY MOUTH EVERY 12 HOURS FOR 10 DAYS - 00:00: 00 No metroNIDAZO LE 500 mg tablet - 00:00: 00 04-10 00:00 :00 No [id number] Take 4 tabs now for one dose. [facility] etonogestre L (NEXPLANON) 68 mg implant 09-06 09:07: 21 Yes Nexplanon 68 mg subdermal implant [facility] Immunizations Ordered Immunization Name Filled Immunization Name Date Status Comments Source HPV9 2021-09-06 00:00:00 Completed [facility] HPV9 2021-09-06 00:00:00 Completed [facility] HPV9 2021-09-06 00:00:00 Completed [facility] HPV9 2021-09-06 00:00:00 Completed [facility] HPV9 2021-09-06 00:00:00 Completed [facility] TDAP 2018-09-18 00:00:00 Completed [facility] TDAP 2018-09-18 00:00:00 Completed [facility] TDAP 2018-09-18 00:00:00 Completed [facility] TDAP 2018-09-18 00:00:00 Completed [facility] TDAP 2018-09-18 00:00:00 Completed [facility] Influenza Virus Vaccine 2016-11-01 00:00:00 Completed [facility] Influenza Virus Vaccine 2016-11-01 00:00:00 Completed [facility] Influenza Virus Vaccine 2016-11-01 00:00:00 Completed [facility] Influenza Virus Vaccine 2016-11-01 00:00:00 Completed [facility] Influenza Virus Vaccine 2016-11-01 00:00:00 Completed [facility] Meningococcal Polysaccharide (groups A, C, Y and W-135) conjugate vaccine (MCV4P) 2013-05-15 00:00:00 Completed [facility] Meningococcal Polysaccharide (groups A, C, Y and W-135) conjugate vaccine (MCV4P) 2013-05-15 00:00:00 Completed TDAP 2007-09-29 00:00:00 Completed [facility] TDAP 2007-09-29 00:00:00 Completed [facility] Varicella (varivax)(chicken pox) 2004-04-10 00:00:00 Completed [facility] Varicella (varivax)(chicken pox) 2004-04-10 00:00:00 Completed MMR 1997-09-16 00:00:00 Completed [facility] IPV 1997-09-16 00:00:00 Completed [facility] DTaP, Unspecified Formulation 1997-09-16 00:00:00 Completed [facility] MMR 1997-09-16 00:00:00 Completed IPV 1997-09-16 00:00:00 Completed DTaP, Unspecified Formulation 1997-09-16 00:00:00 Completed MMR 1993-07-03 00:00:00 Completed [facility] IPV 1993-07-03 00:00:00 Completed [facility] Hib-HbOC 1993-07-03 00:00:00 Completed [facility] Hep B, Adol or Pedi Dosage 1993-07-03 00:00:00 Completed [facility] DTaP, Unspecified Formulation 1993-07-03 00:00:00 Completed [facility] MMR 1993-07-03 00:00:00 Completed IPV 1993-07-03 00:00:00 Completed Hib-HbOC 1993-07-03 00:00:00 Completed Hep B, Adol or Pedi Dosage 1993-07-03 00:00:00 Completed DTaP, Unspecified Formulation 1993-07-03 00:00:00 Completed Hib-HbOC 1992 00:00:00 Completed [facility] DTaP, Unspecified Formulation 1992 00:00:00 Completed [facility] Hib-HbOC 1992 00:00:00 Completed DTaP, Unspecified Formulation 1992 00:00:00 Completed IPV 1992 00:00:00 Completed [facility] Hib-HbOC 1992 00:00:00 Completed [facility] Hep B, Adol or Pedi Dosage 1992 00:00:00 Completed [facility] DTaP, Unspecified Formulation 1992 00:00:00 Completed [facility] IPV 1992 00:00:00 Completed Hib-HbOC 1990 00:00:00 Completed Hep B, Adol or Pedi Dosage 1990 00:00:00 Completed DTaP, Unspecified Formulation 1992 00:00:00 Completed IPV 1992 00:00:00 Completed [facility] Hib-HbOC 1992 00:00:00 Completed [facility] Hep B, Adol or Pedi Dosage 1992 00:00:00 Completed [facility] DTaP, Unspecified Formulation 1992 00:00:00 Completed [facility] IPV 1992 00:00:00 Completed Hib-HbOC 1992 00:00:00 Completed Hep B, Adol or Pedi Dosage 1992 00:00:00 Completed DTaP, Unspecified Formulation 1992 00:00:00 Completed Vital Signs Vital Name Observation Time Observation Value Comments Racheal zuniga Systolic blood pressure 2024-04-10 21:18:00 132 mm[Hg] [place] [facility] Diastolic blood pressure 2024-04-10 21:18:00 92 mm[Hg] [place] [facility] Heart rate 2024-04-10 21:15:00 85 /min [facility] Body temperature 2024-04-10 21:15:00 36.5 Megan [facility] Respiratory rate 2024-04-10 21:15:00 18 /min [facility] Body height 2024-04-10 21:15:00 149.9 cm [facility] Body weight 2024-04-10 21:15:00 98.034 kg [facility] BMI 2024-04-10 21:15:00 43.65 kg/m2 [facility] Heart Rate 2021-09-28 08:25:00 54.00 /min Respiratory [...] Procedures Procedure Date / Time Performed Performing Clinicia n Source URINE CULTURE 2024-04-10 22:00:00 Farooq Ferris [facility] GALV ONLY - VAGINAL PATHOGENS BY NUCLEIC ACID TESTING 2024-04-10 22:00:00 Farooq Ferris [facility] HIV 1/2 AG-AB WITH REFLEX 2024-04-10 22:00:00 Farooq Ferris [facility] SYPHILIS IGG/IGM 2024-04-10 22:00:00 [facility]IN[facility] W/O SPECIFIC GRAVITY 2024-04-10 21:16:00 Farooq Ferris [facility] POCT URINALYSIS W/O SPECIFIC GRAVITY 2021-11-07 19:33:00 Tatyana Denise [facility] POCT TEST 2021-11-07 19:32:00 Any Denise [facility] Plan of Care Planned Activity Planned Date Details Comments Source Goal Plan of Care Note [code = 66122-1] Goal Plan of Care Note [code = 06136-5] Goal Plan of Care Note [code = 93071-3] Goal Plan of Care Note [code = 71396-2] Goal Plan of Care Note [code = 29465-9] Goal Plan of Care Note [code = 13923-2] Encounters Start Date/Time End Date/Time Encounter Type Admission Type Attending [facility] Care Facility Care Department Encounter ID Source 2024-04-13 00:00:00 2024-04-13 10:41:34 Case Management Farooq Ferris [facility] DOOR TO DOOR SELLING AGENT [facility] ..840.114 [id number] 4.2.7.2.686 [id number] [facility] 2024-04-12 00:00:00 2024-04-12 14:25:22 Case Management Farooq Ferris [facility] DOOR TO DOOR SELLING AGENT [facility] ..840.114 350.1.13.10 4.2.7.2.686 [id number] [facility] 2024-04-10 15:00:00 2024-04-10 16:09:18 Outpatient R FAROOQ FERRIS [facility] [id number] [facility] 2024-04-10 15:00:00 2024-04-10 16:09:18 Office Visit Kashmir Ferrisice [facility] DOOR TO DOOR SELLING AGENT [facility] [id number] [id number] 4.2.7.2.686 [id number] [facility] 2024-04-10 14:15:00 2024-04-10 14:15:00 Outpatient R FAROOQ FERRIS [facility] [id number] [facility] 2022-10-02 00:00:00 2022-10-02 00:00:00 Case Management Yessica Mendez [id number] 350.1.13.10 4.2.7.2.686 [id number] [facility] 2022-08-14 13:00:00 2022-08-14 13:00:00 Outpatient R TERESA MANRIQUEZ [facility] [id number] [facility] 2022-03-09 13:30:00 2022-03-09 13:30:00 Outpatient R [facility] [id number] [facility] 2021-11-07 15:15:00 2021-11-07 15:45:00 Office Visit Tatyana Denise [facility] DOOR TO DOOR SELLING AGENT [facility] 1..840.114 350.1.13.10 4.2.7.2.686 [id number] [facility] 2021-11-07 15:15:00 2021-11-07 15:15:00 Outpatient R TATYANA DENISE [facility] [id number] [facility] 2021-11-07 13:15:00 2021-11-07 13:15:00 Outpatient R ERIN TRAN [facility] [id number] [facility] 2021-10-18 13:15:00 2021-10-18 13:15:00 Outpatient R MINNA URBINA [facility] [id number] [facility] 2021-10-12 13:00:00 2021-10-12 13:00:00 Outpatient R CARLITOSMINNA [facility] [id number] [facility] 2021-10-09 12:45:00 2021-10-09 12:45:00 Outpatient R TATYANA DENISE [facility] [id number] [facility] 2021-09-28 00:00:00 2021-09-28 00:00:00 Outpatient Visit [id number] 2021-09-28 00:00:00 2021-09-28 00:00:00 Telephone Allie Tobias [facility] DOOR TO DOOR SELLING AGENT [facility] [id number] 350.1.13.10 4.2.7.2.686 [id number] [facility] 2021-09-15 13:05:00 2021-09-15 13:05:00 Outpatient CELINA MONTANA [facility] [id number] [facility] 2021-09-15 13:05:00 2021-09-15 13:05:00 Outpatient R [facility] [id number] [facility] 2021-09-07 00:00:00 2021-09-07 00:00:00 Telephone Allie Tobias [facility] DOOR TO DOOR SELLING AGENT [facility] .2.840.114 350.1.13.10 4.2.7.2.686 [id number] [facility] 2021-09-06 08:30:00 2021-09-06 10:09:24 Outpatient ALLIE SOLORIO JORDYN [facility] [id number] [facility] 2021-09-06 08:30:00 2021-09-06 10:09:24 Outpatient R ALLIE TOBIAS JORDYN [facility] [id number] [facility] 2021-09-06 08:30:00 2021-09-06 10:09:24 Office Visit Allie Tobias [facility] DOOR TO DOOR SELLING AGENT [facility] [id number] 350.1.13.10 4.2.7.2.686 [id number] [facility] 2021-09-06 00:00:00 2021-09-06 00:00:00 Orders Only Doctor Unassigned, [place] [facility] 1.2840.114 350.1.13.10 4.2.7.2.686 [id number] [facility] 2021-06-21 09:00:00 2021-06-21 09:00:00 Outpatient R LIZ BRUNER [facility] [id number] [facility] 2021-06-21 00:00:00 2021-06-21 00:00:00 Telephone Franc Liz [facility] DOOR TO DOOR SELLING AGENT [facility] 1.840.114 350.1.13.10 4.2.7.2.686 [id number] [facility] 2021-06-21 00:00:00 2021-06-21 00:00:00 Letter (Out) Liz Bruner [facility] DOOR TO DOOR SELLING AGENT [facility] 1.2840.114 350.1.13.10 4.2.7.2.686 [id number] [facility] 2018-09-13 22:07:00 2018-09-13 23:32:00 Hospital Encounter Elsy Granten Mandeep [facility] [id number] 350.1.13.10 4.2.7.2.686 [id number] Results Test Description Test Time Test Comments Results Result Co [facility]ments [facility] [id number] 05:55:34* Test Item Value Reference Range Interpretation Comme nts HIV Semi-quantitative (test code = 78429-4) 0.08 Negative ANALY (test code = ANALY) Non-reactive for HIV-1 antigen and HIV-1/HIV-2 antibodies. ?No laboratory evidence of HIV infection. ?Repeat in 2-4 weeks if acute HIV infection is suspected. [facility] Urinalysis w/o Specific [id number] 21:16:00* Test Item Value Reference Range Interpretation Comme nts POCT PH U (test code = 3254) 7 mg/dl 5-8 POCT U LEUK EST (test code = 3263) 1+ Negative - Negative POCT U NIT (test code = 3262) Neg Negative - Negati ve POCT U PROT (test code = 3259) Trace Negative - Negat kaiser POCT U GLU (test code = 3256) Nml Negative - Negati ve POCT U KETONE (test code = 3258) Neg Negative - Neg ative POCT U BLD (test code = 3257) Trace Negative - Negati ve [facility] URINALYSIS W/O SPECIFIC [id number] 19:33:00* Test Item Value Reference Range Interpretation Comme nts POCT PH U (test code = 3254) 0 mg/dl 5-8 A POCT U LEUK EST (test code = 3263) . Negative - Negative POCT U NIT (test code = 3262) . Negative - Negati ve POCT U PROT (test code = 3259) . Negative - Negat kaiser POCT U GLU (test code = 3256) . Negative - Negati ve POCT U KETONE (test code = 3258) . Negative - Neg ative POCT U BLD (test code = 3257) . Negative - Negati ve Lab Interpretation (test cod e = 34291-5) Abnormal [facility] URINALYSIS W/O SPECIFIC [id number] 19:33:00* Test Item Value Reference Range Interpretation Comme nts POCT PH U (test code = 3254) 0 mg/dl 5-8 A POCT U LEUK EST (test code = 3263) . Negative - Negative POCT U NIT (test code = 3262) . Negative - Negati ve POCT U PROT (test code = 3259) . Negative - Negat kaiser POCT U GLU (test code = 3256) . Negative - Negati ve POCT U KETONE (test code = 3258) . Negative - Neg ative POCT U BLD (test code = 3257) . Negative - Negati ve Lab Interpretation (test cod e = 67504-1) Abnormal [facility] [id number] 19:32:00* Test Item Value Reference Range Interpretation Comme nts POCT PREG (test code = 1605) Negative On board controls acceptable with C Line (test code = 3574) Yes POCT PREG LOT # (test code = 3575) POCT PREG TEST DATE ( test code = 3576) [facility] [id number] 19:32:00* Test Item Value Reference Range Interpretation Comme nts POCT PREG (test code = 1605) Negative On board controls acceptable with C Line (test code = 3574) Yes POCT PREG LOT # (test code = 3575) POCT PREG TEST DATE ( test code = 3576) [facility] SURGICAL PATHOLOGY, LEVEL [id number] 15:05:00 [place] [address] Laboratory Printed: 09/30/18 1505 BK DAEMPathology Page: 1 Patient: RADHA FRAZIER Birthdate: 1990 Age/Sex: 28/F Spec#: [id number]: FAROOQ LEONARD DO Specimen Date: 09/25/18 Received Date: 09/29/18 [...] normal limits. Pathologist:Avila Carpenter MD Entered by:09/30/18 1443 [facility]YGP Patient: RADHA FRAZIER Re09/24/18Loc: SISI MR#: [id number] CONTINUED ON NEXT PAGE Dis: 09/28/18Sta: DIS IN ----- ------- [address] [address] Laboratory Printed: 09/30/18 4467 [facility] DAEMPathology Page: 2 Patient: RADHA FRAZIER [id number] (C ontinued) PROCEDURES: 69525 GROSS DESCRIPTION A. PLACENTA, THIRD TRIMESTER PLACENTA [...] a normal-appearing vascular pattern.It is powers-purple in colorwith multiple scattered powers-white infarct-like discolored areasranging from 1.8 to 2.0 cm in greatest dimensions and comprise less than 5% of the fetalsurface. Also present is a 0.9 x 0.7 x 0.3 cm cystic nodule toward one end. Arepresentative section is submitted. The maternal aspects have a normal-appearing red-maroon cotyledon. Upon cut sectioning it reveals a red-maroon spongy cut surface withnolesions or masses grossly identified. Random employer relations representative sections are submitted in threecassett es, A1-3. Section code:A1 - cord and membraneA2 - aspectsA3 - maternal aspects Dictated by: Raquel Trejo Entered by: 09/29/18 1512 LAB.Y MICROSCOPIC DESCRIPTION A microscopic examinationwas performed to arrive at the diagnostic conclusion reported. Signed (Electronically Signed) Avila Carpenter MD 09/30/18 Patient: RADHA FRAZIER Re09/24/18Loc: 3SW MR#:[id number] END OF REPORT Dis: 09/28/18Sta: DIS IN [id number] 05:28:00* Test Item Value Reference Range Interpretation Comme [...] BASO#) 0.0 thou/uL 0.0-0.2 N Chemistry - [id number] 20:42:00* Test Item Value Reference Range Interpretation Comme [facility] Chemistry - Specials (test code = THBSAG) Non-Reactive S/CO NonReactive Chemistry - [id number] 20:42:00* Test Item Value Reference Range Interpretation Comme [facility] Chemistry - Specials (test c ode = HIVT) Non-Reactive NonReactive Retype Verify-Blood Type [id number] 20:24:00* Test Item Value Reference Range Interpretation Comme [facility] Blood Type Rh (test code = BT) A POSITIVE [id number] 19:40:00* Test Item Value Reference Range Interpretation Comme [facility] Immunology (test code = SYPHABT) Nonreactive Nonreactive [id number] 19:08:00* Test Item Value Reference Range Interpretation Comme [facility] Hematology (test code = WBCT) 9.7 thou/uL [...] MPV) 9.3 fL 7.4-10.4 N [facility] Name[facility] RADHA FRAZIER I Do Now I Don't Phys: [place] [address] : 1990 Age: 28 SEX:F [phone] Exam Date: 09/25/18 Status: ADM IN Acct: [id number] Loc: Giacomo Deras Pt Unit #: [id number] Report #: [id number] CC: FAROOQ LEONARD DOULTRASOUND REPORT Order # Category/Exam [id number] ULT/US Biophysical Profile ([id number]): . Results Exam: NONSTRESS BIOPHYSICAL PROFILE: HISTORY: 35-weeks patient. Oligohydramnios. Comparison: None TECHNIQUE: Nonstress biophysical profile was performed. FINDINGS: Singleintrauterine gestation with vertex presentation. Anterior placenta. Cervical length is 3.6 cm Fetalheart tones with a rate of 123 bpm Amniotic fluid index is 3.5 cm Nonstress biophysical profile: tone: 2 breathin movements: 2 Amniotic fluid: 0 Total score 4 out of 8: IMPRESSION: 1. Single intrauterine gestation with heart tones. 2. Nonstress biophysical profile score is 4 out of 8. Results were given to Giacomo Martínez by the make up editor on 09/25/2018 at the time of the examination. Code CR Transcribed Date/Time: 09/25/2018 10:10 AM Reported By: Ok Gómez ectronically Signed: 09/25/2018 10:35 AM Reported By: Ok Gamboa MD Electronically Signed Date/Time: 09/25/18 1035 Technologist: DIOGENES Dictated Date/Time: 09/25/18 0933 Transcribed Date/Time: Notes Date/Time Note Provider Source 2018-09-28 06:26:00 [facility] Center Name: RADHA FRAZIER I Do Now I Don't : 1990, Age: 28, Sex: [place] [address] Unit #: [id number], Status: ADM IN [phone] Location: 3SW 332-P Report Dict DrShani: XI MAGALLON MD Admission Date: 09/24/18 Report #: [id number] Discharge Date: CC: Progress Note Post Progress Note Post Day #: POD3 Subjective: doing well, no new issues PO intake tolerated: yes Flatus: yes Ambulation: yes Vital Signs (12 hours) Temp Pulse Resp BP BP 09/28/18 05:49 98.2 F 72 20 130/76 09/28/18 02:00 98.2 F 79 20 123/62 09/27/18 20:15 98.4 F 82 16 126/78 Weight Weight 195 lb - Physical Examination General: NAD Cardiovascular: no m/r/g Respiratory: clear to auscultation bilaterally Abdominal: + bowel sounds, lochia, no distention, appropriately TTP Extremities: negative homans (B) Skin: CS incision dry intact Neurological: no gross focal deficits Psychiatric: A Ox3, normal affect Result Diagrams: 09/26/18 05:14 Additional Labs: Post Labs Blood Type A POSITIVE 09/24/18 19:56 Hep Bs Antigen Non-Reactive S/CO (NonReactive) 09/24/18 18:49 (1) Status post repeat low transverse section Code(s): Z98.891 - HISTORY OF UTERINE SCAR FROM PREVIOUS SURGERY Status: Acute - Assessment/Plan doing well on POD 3 and cleared for DC to home Motrin prn F/U as scheduled with her MD <Electronically signed by Xi Magallon MD> 09/28/18 0626 XI MAGALLON [facility] 2018-09-27 07:41:00 [facility] Center Name: RADHA FRAZIER [employer] : 1990, Age: 28, Sex: [place] [id number] Unit #: [id number], Status: ADM IN [phone] Location: 3SW 332-P Report Dict Dr.: CARLOS ENRIQUE MOELLER MD Admission Date: 09/24/18 Report #: [id number] Discharge Date: CC: Progress Note Post Progress Note Post Day #: 2 Subjective: pod #2 s/p rltcs. reporting some problem with pain on current regimen. asking for an abdominal binder PO intake tolerated: yes Flatus: yes Ambulation: yes Vital Signs (12 hours) Temp Pulse Resp BP 09/27/18 00:00 97.8 F 67 18 121/66 Weight Weight 195 lb - Physical Examination General: NAD Respiratory: non-labored breathing Abdominal: no distention, appropriately TTP Extremities: negative homans (B) Skin: CS incision dry intact, no rash Neurological: no gross focal deficits Psychiatric: A Ox3, normal affect Result Diagrams: 09/26/18 05:14 Additional Labs: Post Labs Blood Type A POSITIVE 09/24/18 19:56 Hep Bs Antigen Non-Reactive S/CO (NonReactive) 09/24/18 18:49 - Assessment/Plan POD#2 s/p RLTCS continue routine care. anticipate dc tomorrow. binder ordered to attempt better pain control. <Electronically signed by Carlos Enrique Moeller MD> 09/27/18 0742 CARLOS ENRIQUE MOELLER [facility] 2018-09-26 14:34:00 [facility] Name: RADHA FRAZIER [employer] Now [employer] Don't : 1990, Age: 28, Sex: [place] [address] Unit #: [id number], Status: DIS IN [phone] Location: 3SW 332-P Dictated by: FAROOQ LEONARD DO Admission Date: 09/24/18 Report #: [id number] Discharge Date: 09/28/18 CC: FAROOQ LEONARD DO OPERATIVE NOTE DATE OF PROCEDURE: 09/25/2018 PREOPERATIVE DIAGNOSES: 1. A 36 weeks and zero day intrauterine . 2. Previous section x3. 3. Persistent oligohydramnios. 4. Biophysical profile, 07/21. POSTOPERATIVE DIAGNOSES: 1. A 36 weeks and zero day intrauterine . 2. Previous section x3. 3. Persistent oligohydramnios. 4. Biophysical profile, 6/10. PROCEDURE PERFORMED: Repeat low-transverse delivery via Pfannenstiel skin incision. ASSISTANTS: Xi Magallon MD and Dominga Goddard MD. COMPLICATIONS: None. QUANTITATIVE BLOOD LOSS: 150 mL. URINARY OUTPUT: 400 mL. ANESTHESIA: Spinal. FINDINGS: Dense scar along the fascia and rectus muscles. Thin adhesions from the lower uterine segment to the dome of the bladder. Scant clear amniotic fluid. in cephalic presentation. Normal-appearing placenta, normal-appearing fallopian tubes and ovaries bilaterally, and normal-appearing uterus. INDICATIONS FOR PROCEDURE: Ms. Radha Frazier is a 28-year-old, G5, P3, who was admitted at 35 weeks 6 days due to oligohydramnios with an JOSHUA of 4.5. She underwent observation with IV fluid hydration. Her repeat sonogram showed an JOSHUA of 3.9, and also a total biophysical profile of 6/10. Due to these findings, delivery was recommended and due to her history of 3 prior deliveries, a repeat was arranged. The patient did receive betamethasone for lung maturity prior to delivery. DESCRIPTION OF PROCEDURE: The patient was brought to the operating room. She was placed under spinal anesthesia. The patient was placed in the supine position with a leftward tilt. A Hopper catheter was placed. She was prepped and draped in a sterile fashion. An official time-out was performed. She was given Ancef for surgical prophylaxis. A Pfannenstiel skin incision was made using the scalpel and it was carried down to the underlying fascial layer. The fascia was incised in the midline using the scalpel and extended bilaterally using both the scalpel and Solis scissors. The superior aspect of the fascial incision was grasped using Gabriel clamps, tented upward, dissected free from the underlying rectus abdominis muscles and the same was done to the inferior aspect. The scar tissue was noted along the midline. The rectus abdominis muscles were grasped with Allis clamps, elevated, and incised using Solis scissors. This incision was extended and the peritoneum was incised using sharp dissection. The peritoneal incision was then extended using blunt dissection. Anders O retractor was then placed in the abdomen. A low-transverse hysterotomy was made using the scalpel, this was extended using blunt dissection. Amniotic membranes were ruptured noting clear amniotic fluid; however, scant. The was delivered in cephalic presentation. The infant's cord was clamped and cut. The was handed to the awaiting Neonatology team. Cord blood was obtained. The placenta was delivered spontaneously intact. The uterus was cleared of all clot and debris. Hysterotomy was closed in a running, locking fashion, obtaining hemostasis with 1 Monocryl. The pelvis was irrigated and cleared of all clot and debris, and the bilateral fallopian tubes and ovaries were evaluated and normal in appearance. Andres O retractor was removed from the abdomen. Again, the hysterotomy was evaluated and normal in appearance. The peritoneum was closed in a running fashion using 2-0 chromic. The rectus abdominis muscles were hemostatic with use of the Bovie. The fascia was closed using 0 PDS. Subcutaneous layer was copiously irrigated and hemostatic with use of the Bovie. Subcutaneous layer was closed using 3-0 Vicryl and the skin was closed using 4-0 Monocryl and Dermabond. There were no complications. All counts were correct x3. The patient and infant will be transferred to routine recovery. Job ID: [id number] K Dictated by: FAROOQ LEONARD DO <Electronically signed by FAROOQ LEONARD DO> 09/29/18 1648 K Dictated Date/Time: 09/25/187 Transcribed Date/Time: 09/25/188 Director Service: FAROOQ FOX [facility] 2018-09-26 08:03:00 [facility] Center Name: RADHA FRAZIER [employer] Now [employer] Don't : 1990, Age: 28, Sex: [place] [id number] Unit #: [id number], Status: ADM IN [phone] Location: [facility] 332-P Report Dict Dr.: FAROOQ LEONARD DO Admission Date: 09/24/18 Report #: [id number] Discharge Date: CC: Progress Note Post Progress Note Post Day #: 1 Subjective: Pain controlled. Minimal lochia. Hopper just removed. Breast feeding. PO intake tolerated: yes Flatus: yes Ambulation: yes Vital Signs (12 hours) Temp Pulse Resp BP 09/26/18 04:00 97.9 F 69 17 118/62 09/26/18 00:00 98.1 F 68 17 120/65 Weight Weight 195 lb - Physical Examination General: NAD Cardiovascular: RRR Respiratory: non-labored breathing Abdominal: no distention, appropriately TTP Fundus firm at: below umbilicus Extremities: negative homans (B) Skin: CS incision dry intact, no rash Neurological: no gross focal deficits Psychiatric: A Ox3, normal affect Result Diagrams: 09/26/18 05:14 Additional Labs: Post Labs Blood Type A POSITIVE 09/24/18 19:56 Hep Bs Antigen Non-Reactive S/CO (NonReactive) 09/24/18 18:49 (1) 36 weeks gestation of Code(s): Z3A.36 - 36 WEEKS GESTATION OF Status: Resolved (2) Oligohydramnios Code(s): O41.00X0 - OLIGOHYDRAMNIOS, UNSP TRIMESTER, NOT APPLICABLE OR UNSP Status: Resolved (3) Status post repeat low transverse section Code(s): Z98.891 - HISTORY OF UTERINE SCAR FROM PREVIOUS SURGERY Status: Acute (4) Anemia Code(s): D64.9 - ANEMIA, UNSPECIFIED Status: Acute Qualifiers: Anemia type: iron deficiency Iron deficiency anemia type: unspecified iron deficiency Qualified Code(s): D50.9 - Iron deficiency anemia, unspecified (5) Bacterial vaginosis Code(s): N76.0 - ACUTE VAGINITIS; B96.89 - OTH BACTERIAL AGENTS THE CAUSE OF DISEASES CLASSD ELSWHR Status: Acute - Assessment/Plan PPD1 VSSAF Anemia due to chronic + acute, iron BID. Complete flagyl for BV Continue routine PP/post op care. Plan for d/c 1-2 days due to CS and 36 weeks. <Electronically signed by Farooq Leonard DO> 09/26/18 0804 FAROOQ LEONARD [facility] 2018-09-25 16:18:00 [facility] Center Name: RADHA FRAZIER [address] : 1990, Age: 28, Sex: [place] [address] Unit #: [id number], Status: ADM IN [phone] Location: L D APU2-P Report Dict DrShani: FAROOQ LEONARD DO Admission Date: 09/24/18 Report #: [id number] Discharge Date: CC: OB Operative Delivery Note OB Operative/Delivery Note Delivery Dr/Surgeon: Farooq Leonard DO Assist: Xi Magallon MD Pre-Delivery Diagnosis: medically indicated induction Procedure/Post Delivery Dx: repeat low transverse CS Weeks gestation: 36 Anesthesia: spinal - Findings A Sex: male - 1 min: 8 - 5 min: 9 - Additional Findings/Plan Placenta delivered: spontaneous findings: low transverse hysterotomy without extension, normal uterus, normal tubes, normal ovaries Estimated blood loss: QBL 150 cc Compilations/Other Findings: Dense scar on fascia Thin adhesions from dome of bladder to ANDREINA Scant clear AF Infant in cephalic presentation Normal appearing placenta Post delivery plan: routine recovery <Electronically signed by Farooq Leonard DO> 09/25/18 1619 FAROOQ LEONARD [facility] 2018-09-25 15:13:00 [facility] Name: RADHA FRAZIER I Do Now I Don't : 1990, Age: 28, Sex: [place] [address] Unit #: [id number], Status: ADM IN [phone] Location: L D APU2-P Dictated by: XI MAGALLON MD Admission Date: 09/24/18 Report #: [id number] Discharge Date: CC: XI MAGALLON MD, CANDICE L DO OPERATIVE NOTE DATE OF PROCEDURE: 09/25/2018 MEDICAL OFFICE SPECIALIST NOTE: LOCATION: Labor and Delivery. PRINCIPAL SURGEON: Farooq Leonard DO. ASSISTANTS: 1. Xi Magallon MD. 2. Dominga Goddard MD. PROCEDURE: Repeat Low Transverse Section Course: In brief, this is a patient who is at 36 weeks with oligohydramnios, prior , whom Dr. Leonard has elected to deliver by a repeat . I arrived to Labor and Delivery OR and assisted with the repeat , which occurred without complication. This was performed via Pfannenstiel skin incision. There were no intraabdominal pelvic adhesions. I was present from the start of the surgical case until uterine closure. At the time of uterine closure, and after confirming hemostasis, Dr. Dominga Goddard, who was also scrubbed in, stepped in as publisher assistant and continued with the abdominal wall closure. Job ID: [id number] K Dictated by: XI MAGALLON MD <Electronically signed by XI MAGALLON MD> 09/25/18 1534 K Dictated Date/Time: 09/25/18 1456 Transcribed Date/Time: 09/25/18 1508 Director Service: XI BOYD [facility] 2018-09-25 11:32:00 [facility] 1990, Age: 28, Sex: [place] [address] Unit #: [id number], Status: ADM IN [phone] Location: L D APU2-P Report Dict DrShani: FAROOQ LEONARD DO Admission Date: 09/24/18 Report #: [id number] Discharge Date: CC: Event Note Event Note - Event Note Event Note: BPP 6/10 despite hydration. FHTS currently cat 1 Will proceed with RCS today s/p BMTZ x2 <Electronically signed by Farooq Leonard DO> 09/25/18 1132 FAROOQ LEONARD [facility] 2018-09-25 07:55:00 [facility] Center Name: RADHA FRAZIER [employer] : 1990, Age: 28, Sex: [place] [address] Unit #: [id number], Status: ADM IN [phone] Location: L D APU2-P Report Dict DrShani: FAROOQ LEONARD DO Admission Date: 09/24/18 Report #: [id number] Discharge Date: CC: Labor Delivery Progress Note Labor Delivery Progress Note - Subjective Subjective: comfortable - Objective Vital signs reviewed and normal: yes General: NAD Uterine fundus: non tender FHT: category 1 (120s, mod ramu, +accels, no decels) [place] contractions every: no ctx - Assessment (1) 36 weeks gestation of Code(s): Z3A.36 - 36 WEEKS GESTATION OF Current Visit: Yes Status: Acute (2) Oligohydramnios Code(s): O41.00X0 - OLIGOHYDRAMNIOS, UNSP TRIMESTER, NOT APPLICABLE OR UNSP Current Visit: Yes Status: Acute -: Continue IVF and complete BMTZ Repeat sono for JOSHUA this morning. Keep NPO at this time, pending sono to determine delivery plan <Electronically signed by Farooq Leonard DO> 09/25/18 0755 FAROOQ LEONARD [facility] 2018-09-24 18:10:00 [facility] Center Name: RADHA FRAZIER [employer] Now [employer] Don't : 1990, Age: 28, Sex: YE[place] [address] Unit #: [id number], Status: [facility] [place] [phone] Location: L D/OP Report Dict DrShani: FAROOQ LEONARD DO Admission Date: Report #: [id number] Discharge Date: CC: Labor and Delivery H P Labor and Delivery H P Chief complaint: other HPI: 28 yo @ 35w6d by LMP c/w 11 week CRL who presents for admission from clinic due to oligohydramnios. Amnisure neg. H/O CS x3 and h/o PPROM, now on [place]. Carrier of sickle cell trait. Current gestational age (weeks): 35 Dating criteria: last menstrual period Grav: 5 Para: 3 OB History Details: 2 term CS 1 CS for PPROM @ 36 weeks 1 SAB Current complications: none Abnormal US findings: Yes (JOSHUA 4.5 today ) Past Medical History: Anemia Current medications: pre- vitamins, iron Previous surgical history: low tranverse CS (x3) Allergies/Adverse Reactions: Allergies Allergy/AdvReac Type Severity Reaction Status Date / Time No Known Allergies Allergy Verified 09/24/18 17:40 Social history: none - Physical Exam Vital signs reviewed and normal: yes General: NAD Heart: RRR Lungs: nonlabored breathing Abdomen: gravid Extremeties: no edema FHT: category 1 [place] contractions every: rare ctx - Vaginal Exam cm dilated: 0 (cephalic) Effacement: 0% Station: -3 - OB Labs Blood type: A RH: positive Antibody Screen: negative HIV: negative RPR: negative HEPSAg: negative 1 hour GCT: negative GBS: unknown Urine drug screen: negative Rubella: immune Additional Labs: SS wnl - Assessment 35w6d IUP Oligohydramnios Previous CS x3 Anemia - Plan Plan: observation in L D, informed consent obtained, anesthesia consult for pain management -: Admit for observation, IVF hydration and BMTZ course. Repeat sono tomorrow Delivery pending sono tomorrow. T C 2 untis RRS was declined by ethics committee <Electronically signed by Farooq Leonard DO> 09/24/18 1816 FAROOQ LEONARD [facility] 2017-05-08 03:51:00 [facility] Center Name: RADHA FRAZIER [employer] Do Now I Don't : 1990, Age: 27, Sex: [place] [address] Unit #: [id number], Status: [place] [address] [phone] Location: L D/OP Report Dict DrShani: CARLOS ENRIQUE MOELLER MD Admission Date: Report #: [id number] Discharge Date: 05/08/17 CC: CARLOS ENRIQUE MOELLER MD, CANDICE L DO PROGRESS NOTE OB ER ENCOUNTER DATE OF ENCOUNTER: 05/08/2017 PRIMARY ORNITHOLOGY TEACHER: Dr. Farooq Leonard. CHIEF COMPLAINT: Vaginal spotting and decreased movement. HISTORY OF PRESENT ILLNESS: Patient is a 27-year-old G4, P2 female with an intrauterine at 37 weeks and 3 days, followed by Dr. Leonard. Patient has a history of 2 previous C sections and is scheduled on 05/23/2017 to have a repeat scheduled section. Patient reports that today when she went to the bathroom that she noticed some spotting, she also reports that she has not had any movement since about 2:00 this afternoon until she got here to the hospital. She denies uterine contractions, leakage of fluid, any other spotting or bleeding. She denies any falls, fever , headache, chest pain, shortness of breath, any nausea, vomiting, diarrhea, constipation. She denies rash, any urinary urgency, frequency. PAST MEDICAL HISTORY: Anemia. PAST SURGICAL HISTORY: She has had wisdom teeth removed in 2010 and two previous C-sections. SOCIAL HISTORY: Denies drug, alcohol, or tobacco use. ALLERGIES: No known drug allergies. MEDICATIONS: vitamins. Blood type A positive, antibody screen is negative, HIV of the first and third trimester is nonreactive. RPR in the first and third trimester is nonreactive. Hepatitis B surface antigen is nonreactive. Blood type is A positive, antibody screen is negative. She is rubella immune. REVIEW OF SYSTEMS: Per HPI. PHYSICAL EXAMINATION: VITAL SIGNS: Blood pressure is 117/76, heart rate of 91, respiratory rate of 16, satting 99% on room air, temperature 98.5. GENERAL: She appears to be in no acute distress. She is alert and oriented, cooperative and pleasant to interact with. HEAD: Normocephalic, atraumatic. LUNGS: Clear to auscultation bilaterally. HEART: Regular rate and rhythm. ABDOMEN: Gravid and soft, nontender. EXTREMITIES: Nontender, nonedematous. CERVICAL EXAM: Per nursing staff, she is closed, thick, and high. There is no bleeding on the glove. heart tracing performed for decreased movement. Fetus noted to have a heart rate in the 140s with moderate long-term variability, positive accelerations, no decelerations. Tocometer shows some irritability. ASSESSMENT AND PLAN: Patient is a 27-year-old G4, P2 female with an intrauterine at 37 weeks with some isolated spotting and decreased movement. Patient has been given reassurance with a reactive NST and no more evidence of bleeding at this time. Patient, although there is no evidence at this point of anything to be concerned, patient is uncomfortable going home. We will monitor the patient for a few more hours for any spotting. Patient has been given instructions to notify the nursing staff if she notices any more spotting or bleeding. Reported By: CARLOS ENRIQUE MOELLER MD Electronically Signed Date/Time: 05/08/17 8218 Dictated Date/Time: 05/08/17220 Transcribed Date/Time: 05/08/17349 Director Service: SHARON CARLOS ENRIQUE MOELLER [facility] 2017-05-05 11:52:00 DATE OF ENCOUNTER: 0 05/05/2017 OB ER ENCOUNTER PRIMARY ORNITHOLOGY TEACHER: Dr. Farooq Leonard. CHIEF COMPLAINT: Abdominal pains. HISTORY OF PRESENT ILLNESS: The patient is a 27-year-old G4, P2 female with an intrauterine at 37 weeks today, who is followed by Dr. Leonard. She has a history of 2 previous C- sections and is presenting today with abdominal pain. The patient was evaluated earlier this morning in [place] and was found to be fingertip, but not laboring. Patient admits that her pain has been more of the chronic nature, associated with activity and movement and that she is just tired of this point in her . The patient does reports she is having contractions, but her primary pain is in her abdomen with activity and shooting into her vaginal and labial region. She has small children at home that she has been caring for, which has exacerbated her problem. She believes that her most current problem started after spending a long day outdoors walking and supporting her children in a sporting event. The patient denies fever, headache, chest pain, shortness of breath, nausea, vomiting, diarrhea, constipation. She denies new rashes. She denies vaginal bleeding, leakage of fluid, or urinary problems. Patient has Tylenol #3 at home that she reports has not been helpful. PAST MEDICAL HISTORY: Negative. PAST SURGICAL HISTORY: Previous x2. ALLERGIES: No known drug allergies. SOCIAL HISTORY: Denies drug, alcohol, or tobacco use. MEDICATIONS: vitamins and then Tylenol #3 for a tooth problem. OB LABS: Unavailable at time of dictation. REVIEW OF SYSTEMS: Per HPI. PHYSICAL EXAMINATION: VITAL SIGNS: Blood pressure is 121/83, heart rate of 83, respiratory rate of 18, satting 99% on room air, temperature is 98.5. GENERAL: She appears to be in no acute distress. She is alert and oriented, cooperative, and pleasant to interact with. HEENT: Head is normocephalic, atraumatic. LUNGS: Clear to auscultation bilaterally. HEART: Regular rate and rhythm. ABDOMEN: Gravid, but soft. She does have some tenderness to deviation of the uterus and in the lower pelvic region. EXTREMITIES: Nontender with minimal edema bilaterally. EXAM: Cervix is closed, thick, and high per nursing staff. heart tracing performed for abdominal pains. Baselines noted to be in the 130s with moderate long-term variability, positive accelerations, no decelerations. Tocometer showing some irritability, but no consistent contraction pattern. After discussing the patient's current situation, she is very accepting with the knowledge that she is not in active labor. We are addressing to help her with her pain temporarily. I have offered her 8 mg of morphine IM, which should be able to give her some rest for the next several hours and 2 Tylenol. I have encouraged her to take her Tylenol or Tylenol 3 every 6 hours on a regular basis as needed for improvement of her pain. The patient has an appointment with Dr. Leonard on Saturday. She has a scheduled date for her . The fetus is reassuring and reactive. The patient is being discharged home. Reported By: Dictated Date/Time: 05/05/17 1112 Transcribed Date/Time: 05/05/17 1152 Director Service: MICHAEL.CARLOS ENRIQUE CARBALLO
[2024-04-23] MEDS ORDERED: NA CHLORIDE 0.9% 50 ML ONE (17:37)
[2024-04-23] MEDS ORDERED: KETOROLAC 30 MG/ML INJ ONE (17:37)
[2024-04-23] MEDS ORDERED: PROMETHAZINE INJ 25 MG/ML AMP ONE (17:37)
[2024-04-23] MEDS ORDERED: NA CHLORIDE 0.9% 1,000 ML ONE (17:37)
[2024-04-23] MEDS ORDERED: METOCLOPRAMIDE 10 MG/2mL INJ ONE (17:37)
[2024-04-23 17:38] LABS: Absolute Eosinophils 0.1 K/uL (0-0.5); Absolute Lymphocytes (CBC) 3.3 K/uL (0.7-4.9); Absolute Monocytes 0.4 K/uL (0.1-1.3); Absolute Neutrophil 3.5 K/uL (1.8-8.0); Basophils % 0.4 % (0-1.3); Eosinophils % 1.9 % (0-4.4); Hematocrit 30.3 % (36.0-45.0); Hemoglobin 10.1 g/dL (12.0-15.0); Lymphocytes % 44.1 % (15.3-44.8); MCH 23.7 pg (27.0-35.0); MCHC 33.2 g/dL (32.0-36.0); MCV 71.4 fL (80-100); MPV 7.5 fL (7.6-11.3); Neutrophils % 47.6 % (41.7-73.7); Platelets 500 thou/uL (152-406); RBC Red Blood Cell Count 4.24 M/uL (3.86-4.86); Red Cell Distribution Width 17.6 % (12.1-15.2)
[2024-04-23 17:51] LABS: Anion Gap 5.7 mEq/L (5.0-15.0); Potassium 3.7 mEq/L (3.5-5.1)
--- NOTE | 2024-04-23 18:14 | ER ---
Nurse's Notes [facility] Name: Jazlyn Frazier Age: 34 yrs Sex: Female : 1990 Arrival Date: 04/23/2024 Time: 16:56 Bed 11 Private MD: Diagnosis: Essential (primary) hypertension Presentation: 04/23 17:15 Chief complaint: Patient states: RICH, dizziness started after noon today. BP 155/101 at ll1 home. Barely eating for 1 week, no appetite. Coronavirus screen: Client denies travel out of the [place] in the last 14 days. At this time, the client does not indicate any symptoms associated with coronavirus-19. Ebola Screen: Patient denies travel to an Ebola-affected area in the 21 days before illness onset. Initial Sepsis Screen: Does the patient meet any 2 criteria? No. Patient's initial sepsis screen is negative. Does the patient have a suspected source of infection? No. Patient's initial sepsis screen is negative. Risk Assessment: Do you want to hurt yourself or someone else? Patient reports no desire to harm self or others. Onset of symptoms was April 23, 2024. 17:15 Method Of Arrival: Ambulatory ll1 17:15 Acuity: ALEKSANDAR 2 ll1 Triage Assessment: 17:15 General: Appears uncomfortable, Behavior is calm, cooperative, appropriate for age. ll1 Pain: Complains of pain in head Quality of pain is described as aching. Neuro: Reports headache weakness. Cardiovascular: Reports high BP. HEALTHCARE FACILITY ADMINISTRATOR: 18:47 LMP N/A - control method, Not ll1 Historical: - Allergies: 17:03 No Known Allergies; ll1 - Home Meds: 17:14 None [Active]; ll1 - PMHx: 17:14 None; ll1 - PSHx: 17:03 section; ll1 - Immunization history:: Adult Immunizations up to date. - Infectious Disease History:: Denies. - Social history:: Smoking status: Patient denies any tobacco usage or history of. Screenin:[address] [facility] ED Fall Risk Assessment (Adult) History of falling in the last 3 months, ll1 including since admission No falls in past 3 months (0 pts) Confusion or Disorientation No (0 pts) Intoxicated or Sedated No (0 pts) Impaired Gait No (0 pts) Mobility Assist Device Used No (0 pt) Altered Elimination No (0 pt) Score/Fall Risk Level 0 - 2 = Low Risk Maintained a safe environment, Hourly rounding (assess needs \T\ fall precautionary measures) done. Abuse screen: Denies threats or abuse. Nutritional screening: No deficits noted. Tuberculosis screening: No symptoms or risk factors identified. Assessment: 17:45 Reassessment: No changes from previously documented assessment. Patient and/or family ll1 updated on plan of care and expected duration. Pain level reassessed. Patient is alert, oriented x 3, equal unlabored respirations, skin warm/dry/pink. 18:24 Reassessment: No changes from previously documented assessment. Patient and/or family ll1 updated on plan of care and expected duration. Pain level reassessed. Patient is alert, oriented x 3, equal unlabored respirations, skin warm/dry/pink. 18:48 Reassessment: No changes from previously documented assessment. Patient and/or family ll1 updated on plan of care and expected duration. Pain level reassessed. Patient is alert, oriented x 3, equal unlabored respirations, skin warm/dry/pink. Vital Signs: 17:15 BP 152 / 105; Pulse 71; Resp 17; Temp 98.4; Pulse Ox 100% ; Weight 97.98 kg; Height 4 ll1 ft. 11 in. ; Pain 7/10; 18:15 BP 148 / 84; dr5 18:47 BP 132 / 98; Pulse 70; Resp 17; Pulse Ox 100% ; Pain 0/10; ll1 17:15 Body Mass Index 43.63 (97.98 kg, 149.86 cm) ll1 17:15 Pain Scale: Adult ll1 18:47 Pain Scale: Adult ll1 ED Course: 17:00 Patient arrived in ED. cj3 17:02 Ilir Reilly FNP-C [facility]. dr5 17:02 Kevin Mauro MD is Attending Physician. dr5 17:04 Arm band placed on. ll1 17:16 Triage completed. ll1 17:35 Patient has correct armband on for positive identification. Provided Education on: ER ll1 procedures and process. 17:35 Inserted saline lock: 22 gauge in left antecubital area, using aseptic technique. Blood ll1 collected. Flushed with 10 mL NS. 18:48 No provider procedures requiring assistance completed. IV discontinued, intact, ll1 bleeding controlled, No redness/swelling at site. Pressure dressing applied. Administered Medications: 17:44 Drug: NS 0.9% IV 1000 ml IV at 1000 ml once; to be given as a bolus over 60 minutes ll1 Route: IV; Rate: 1000 ml; Site: left antecubital; 18:46 Follow up: Response: No adverse reaction; IV Status: Completed infusion; IV Intake: ll1 800ml 17:44 Drug: metoCLOPramide IVP 10 mg IVP once; over 1 to 2 minutes Route: IVP; Site: left ll1 antecubital; 18:46 Follow up: Response: No adverse reaction; Nausea is decreased ll1 17:45 Drug: Ketorolac IVP 15 mg IVP once {Note: pain 6/10.} Route: IVP; Site: left ll1 antecubital; 18:23 Follow up: Response: No adverse reaction; Pain is decreased ll1 17:45 Drug: Promethazine IVP 12.5 mg IVP once Route: IVP; Site: left antecubital; ll1 18:23 Follow up: Response: No adverse reaction; Nausea is decreased ll1 Medication: 18:49 VIS not applicable for this client. ll1 Intake: 18:46 IV: 800ml; Total: 800ml. ll1 Outcome: 18:14 Discharge ordered by . dr5 18:49 Discharged to home ambulatory, ll1 18:49 Condition: stable 18:49 Discharge instructions given to patient, Instructed on discharge instructions, follow up and referral plans. medication usage, Demonstrated understanding of instructions, follow-up care, medications, Prescriptions given X 1, 18:50 Patient left the ED. ll1 Signatures: Jakob Chavarria RN RN ll1 Ilir Reilly, SUPPORT GROUP MANAGER-C SUPPORT GROUP MANAGER-Cdr5 Mgagie Tobias cj3
--- NOTE | 2024-04-23 18:15 | EDPHYS ---
Physician Documentation [facility] Name: Jazlyn Frazier Age: 34 yrs Sex: Female : 1990 Arrival Date: 04/23/2024 Time: 16:56 Bed 11 Private MD: ED Physician Kevin Mauro HPI: 04/23 19:13 This 34 yrs old Black Female presents to ER via Ambulatory with complaints of High dr5 Blood Pressure. 19:13 The patient has elevated blood pressure and discovered this at home. Patient is a dr5 34-year-old female with no past medical history coming in with headache that is consistent with previous given history of migraines. Patient states that when she has headaches. Blood pressure elevates. She reports coming in for intermittent dizziness and headache.. 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 - Infectious Disease History:: Denies. - Social history:: Smoking status: Patient denies any tobacco usage or history of. ROS: 19:13 Constitutional: as per hpi dr5 Exam: 21:17 Constitutional: This is a well developed, well nourished patient who is awake, alert, dr5 and in no acute distress. Head/Face: Normocephalic, atraumatic. ENT: Nares patent. No nasal discharge, no septal abnormalities noted. Tympanic membranes are normal and external auditory canals are clear. Oropharynx with no redness, swelling, or masses, exudates, or evidence of obstruction, uvula midline. Mucous membranes moist. Neck: Trachea midline, no thyromegaly or masses palpated, and no cervical lymphadenopathy. Supple, full range of motion without nuchal rigidity, or vertebral point tenderness. No Meningismus. Chest/axilla: Normal chest wall appearance and motion. Nontender with no deformity. No lesions are appreciated. Cardiovascular: Regular rate and rhythm with a normal S1 and S2. Normal PMI, no JVD. No pulse deficits. Respiratory: Lungs have equal breath sounds bilaterally, clear to auscultation. No rales, rhonchi or wheezes noted. No increased work of breathing, no retractions or nasal flaring. Back: No spinal tenderness. No costovertebral tenderness. Full range of motion. Skin: Warm, dry with normal turgor. Normal color with no rashes, no lesions, and no evidence of cellulitis. MS/ Extremity: Pulses equal, no cyanosis. Neurovascular intact. Full, normal range of motion. Neuro: Awake and alert, GCS 15, oriented to person, place, time, and situation. Cranial nerves II-XII grossly intact. Motor strength 5/5 in all extremities. Sensory grossly intact. Cerebellar exam normal. Normal gait. Vital Signs: 17:15 BP 152 / 105; Pulse 71; Resp 17; Temp 98.4; Pulse Ox 100% ; Weight 97.98 kg; Height 4 ll1 ft. 11 in. ; Pain 7/10; 18:15 BP 148 / 84; dr5 18:47 BP 132 / 98; Pulse 70; Resp 17; Pulse Ox 100% ; Pain 0/10; ll1 17:15 Body Mass Index 43.63 (97.98 kg, 149.86 cm) ll1 17:15 Pain Scale: Adult ll1 18:47 Pain Scale: Adult ll1 MDM: 17:02 Medical Screening Exam initiated dr5 21:16 Differential diagnosis: hypertensive crisis, Migraine, Cluster Headache. Data reviewed: dr5 vital signs, nurses notes. I considered the following discharge prescriptions or medication management in the emergency department Medications were administered in the Emergency Department. See MAR. Care significantly affected by the following Social Determinants of Health: Poor access to healthcare and/or lack of insurance, Poor access to transportation, Problems related to employment. Counseling: I had a detailed discussion with the patient and/or guardian regarding the historical points, exam findings, and any diagnostic results supporting the discharge/admit diagnosis, the presence of at least one elevated blood pressure reading (>120/80) during this emergency department visit, lab results, the need for outpatient follow up, for definitive care, a family practitioner, to return to the emergency department if symptoms worsen or persist or if there are any questions or concerns that arise at home. Medication response: Reglan, Toradol, Promethazine. Response to treatment: the patient's symptoms have resolved after treatment. ED course: Will start patient on low-dose amlodipine and have patient follow-up with primary care doctor in 2 weeks when her insurance kicks in. Patient reports that her migraine has resolved and is feeling much better. All questions answered. Patient stable on discharge. Recommend return to ER for worsening conditions or any other concerns.. 04/23 17:21 Order name: CBC with Diff; Complete Time: 17:58 dr5 04/23 17:21 Order name: BMP; Complete Time: 17:58 dr5 04/23 17:24 Order name: EKG; Complete Time: 17:25 dr5 04/23 17:24 Order name: EKG - Nurse/Tech; Complete Time: 17:25 dr5 04/23 17:25 Order name: IV Start; Complete Time: 17:32 dr5 EC:22 Rate is 73 beats/min. Rhythm is regular. QRS [place] is Normal. [place] interval is normal at dr5 156 msec. QRS interval is normal at 80 msec. QT interval is normal at 400 msec. Administered Medications: 17:44 Drug: NS 0.9% IV 1000 ml IV at 1000 ml once; to be given as a bolus over 60 minutes ll1 Route: IV; Rate: 1000 ml; Site: left antecubital; 18:46 Follow up: Response: No adverse reaction; IV Status: Completed infusion; IV Intake: ll1 800ml 17:44 Drug: metoCLOPramide IVP 10 mg IVP once; over 1 to 2 minutes Route: IVP; Site: left ll1 antecubital; 18:46 Follow up: Response: No adverse reaction; Nausea is decreased ll1 17:45 Drug: Ketorolac IVP 15 mg IVP once {Note: pain 6/10.} Route: IVP; Site: left ll1 antecubital; 18:23 Follow up: Response: No adverse reaction; Pain is decreased ll1 17:45 Drug: Promethazine IVP 12.5 mg IVP once Route: IVP; Site: left antecubital; ll1 18:23 Follow up: Response: No adverse reaction; Nausea is decreased ll1 Disposition Summary: 04/23/24 18:14 Discharge Ordered Notes: Location: Home dr5 Condition: Stable dr5 Diagnosis - Essential (primary) hypertension dr5 Followup: dr5 - With: Emergency Department - When: As needed - Reason: Worsening of condition Followup: dr5 - With: Private Physician - When: 1 - 2 days - Reason: Recheck today's complaints, Continuance of care, Re-evaluation by your physician Discharge Instructions: - Discharge Summary Sheet dr5 - Hypertension, Adult dr5 Forms: - Work release form ll1 - Medication Reconciliation Form dr5 - Patient Portal Instructions dr5 - Leadership Thank You Letter dr5 Prescriptions: - amlodipine 5 mg Oral tablet - take 1 tablet ORAL route daily for 30 days; 30 tablet; Refills: 0, Product dr5 Selection Permitted Addendum: 04/24/2024 21:49 I was immediately available for consultation during this patient's visit. I did not e c2 personally see the patient or discuss the patient with the [facility]. . Signatures: Dispatcher [employer] Jakob Dumont RN RN ll1 Kevin Mauro MD MD ec2 Ilir Reilly, RETAIL WAREHOUSE ASSOCIATE-C RETAIL WAREHOUSE ASSOCIATE-Cdr5
[2024-04-23 19:22] VITALS: TEMP 98.4; O2SAT 100
[2024-04-23 19:24] VITALS: BP 132/98
== END 2024-04-23 18:50 | disposition home or self-care (01) ==
LOC: ER 16:56
DX: I10 Essential (primary) hypertension (principal)
CPT/HCPCS: 36415; 80048; 85025; 93005; 96361; 96374; 96375; 99284; J2550; J2765; J7030